=== PATIENT | female | born 1975 | race Caucasian/White ===

== ENCOUNTER 2018-01-28 21:34 | Observation (INO) | payer BC ==
--- NOTE | 2018-01-28 21:57 | PDOC ---
Rapid Medical Evaluation Time Seen by Provider: 01/28/18 21:53 Medical Evaluation: Allergies Allergy/AdvReac Type Severity Reaction Status Date / Time No Known Allergies Allergy Verified 02/18/14 01:12 01/28/18 21:55 I have performed a brief in-person evaluation of this patient. The patient presents with a chief complaint of: midsternal chest pain radiating to her back for 6 hours Pertinent physical exam findings: Lungs CTAB. Pulses equal bilaterally I have ordered the following: labs, ekg, xray The patient will proceed to the ED for further evaluation. Discharge Disposition - Diagnosis Chest pain - Referrals - Patient Instructions - Post Discharge Activity
[2018-01-28] MEDS ORDERED: FAMOTIDINE 20 MG/50 ML IVPB 20 MG/50 ML MG IVPB ONE ×2 (23:29→23:47)
[2018-01-28] MEDS ORDERED: MAG HYDROX/AL HYDROX/SIMETH 30 ML UNIT-DOSE CUP PO ONE (23:29)
[2018-01-28] MEDS ORDERED: ONDANSETRON 4 MG/2 ML VIAL IVPUSH ONE (23:29)
[2018-01-28] MEDS ORDERED: LIDOCAINE VISCOUS 2% ORAL/TOP 20 ML UNIT-DOSE CUP MM ONE (23:29)
[2018-01-28] MEDS ORDERED: SODIUM CHLORIDE 0.9% 1000 ML INFUS.BAG IV ONE (23:29)
--- NOTE | 2018-01-28 23:36 | PDOC ---
History of Present Illness - General History Source: Patient Exam Limitations: No Limitations - History of Present Illness Initial Comments: 01/28/18 23:58 The patient is a 42 year old female with past medical history of acid reflux who presents to the ED with complaints of epigastric pain that began earlier today. She reports severe, stabbing pain that radiates to her back and is associated with nausea and multiple episodes of non-bloody non-bilious vomiting. It is not associated with any chest pain or shortness of breath. She reports having lunch today which consisted of lasagna. She denies any fevers, chills, or any urinary symptoms. GI: Dr. Edgar. F/u a few months ago with endoscopy that showed acid reflux. <Radhika Cooper - Last Filed: 01/29/18 01:28> <Ruthie Phillips - Last Filed: 01/29/18 01:43> - General Chief Complaint: Chest Pain Stated Complaint: PAIN Time Seen by Provider: 01/28/18 21:53 Past History <Radhika oCoper - Last Filed: 01/29/18 01:28> - Immunization History Immunization Up to Date: Yes - Suicide/Smoking/Psychosocial Hx Smoking History: Current every day smoker Number of Cigarettes Smoked Daily: 8 Information on smoking cessation initiated: No 'Breaking Loose' booklet given: 02/18/14 Hx Alcohol Use: No <Ruthie Phillips - Last Filed: 01/29/18 01:43> - Past Medical History Allergies/Adverse Reactions: Allergies Allergy/AdvReac Type Severity Reaction Status Date / Time No Known Allergies Allergy Verified 01/28/18 21:58 Home Medications: Ambulatory Orders Famotidine [Pepcid -] 40 mg PO DAILY 01/29/18 Icosapent Ethyl [Vascepa] 1 gm PO DAILY 01/29/18 Lubiprostone [Amitiza] 8 mcg PO BID 01/29/18 Review of Systems - Review of Systems Able to Perform ROS?: Yes Comments:: 01/28/18 23:58 GENERAL/CONSTITUTIONAL: No fever or chills. No weakness. HEAD, EYES, EARS, NOSE AND THROAT: No change in vision. No ear pain or discharge. No sore throat. CARDIOVASCULAR: No chest pain or shortness of breath. RESPIRATORY: No cough, wheezing, or hemoptysis. GASTROINTESTINAL:(+) epigastric pain, nausea, vomiting, diarrhea No constipation. GENITOURINARY: No dysuria, frequency, or change in urination. MUSCULOSKELETAL: No joint or muscle swelling or pain. No neck or back pain. SKIN: No rash NEUROLOGIC: No headache, vertigo, loss of consciousness, or change in strength/ sensation. ENDOCRINE: No increased thirst. No abnormal weight change. HEMATOLOGIC/LYMPHATIC: No anemia, easy bleeding, or history of blood clots. ALLERGIC/IMMUNOLOGIC: No hives or skin allergy. All Other Systems: Reviewed and Negative <Radhika Cooper - Last Filed: 01/29/18 01:28> *Physical Exam - Vital Signs Last Vital Signs Temp Pulse Resp BP Pulse Ox 98.2 F 93 H 18 155/107 100 01/28/18 22:03 01/28/18 22:03 01/28/18 22:03 01/28/18 22:03 01/28/18 22:03 - Physical Exam Comments: 01/28/18 23:59 GENERAL: Awake, alert, and fully oriented, uncomfortable appearing, dry heaving at bedside. HEAD: No signs of trauma EYES: PERRLA, EOMI, sclera anicteric, conjunctiva clear ENT: Auricles normal inspection, hearing grossly normal, nares patent, oropharynx clear without exudates. Moist mucosa NECK: Normal ROM, supple, no lymphadenopathy, JVD, or masses LUNGS: Breath sounds equal, clear to auscultation bilaterally. No wheezes, and no crackles HEART: Regular rate and rhythm, normal S1 and S2, no murmurs, rubs or gallops ABDOMEN: Soft, nontender, normoactive bowel sounds. No guarding, no rebound. No masses EXTREMITIES: Normal range of motion, no edema. No clubbing or cyanosis. No cords, erythema, or tenderness NEUROLOGICAL: Cranial nerves II through XII grossly intact. Normal speech, normal gait SKIN: Warm, Dry, normal turgor, no rashes or lesions noted. <Radhika Cooper - Last Filed: 01/29/18 01:28> - Vital Signs Last Vital Signs Temp Pulse Resp BP Pulse Ox 98.2 F 93 H 18 155/107 100 01/28/18 22:03 01/28/18 22:03 01/28/18 22:03 01/28/18 22:03 01/28/18 22:03 <Ruthie Phillips - Last Filed: 01/29/18 01:43> Heart Score/ECG Review - ECG Intrepretation Comment:: 01/28/18 23:36 sinus at 70, nl axis, nl interval, t wave inversions v2, no other acute st changes <Ruthie Phillips - Last Filed: 01/29/18 01:43> ED Treatment Course - LABORATORY CBC & Chemistry Diagram: 01/28/18 00:11 01/29/18 00:10 - RADIOLOGY Radiograph Interpretation: 01/29/18 01:20 EXAM: Right upper quadrant abdominal ultrasound HISTORY: Epigastric pain. Bolus vomiting. COMPARISON: None. FINDINGS: The liver is heterogeneous in appearance and measures 17 cm. There are multiple small gallstones. However no gallbladder wall thickening or pericholecystic fluid. instrument technologist reports the Hendrickson's sign to be negative. No right hydronephrosis. The right upper quadrant free fluid. Normal common bile duct measuring 3.7 mm diameter. THIS DOCUMENT HAS BEEN ELECTRONICALLY SIGNED Luis Anguiano MD <Radhika Cooper - Last Filed: 01/29/18 01:28> - LABORATORY CBC & Chemistry Diagram: 01/28/18 00:11 01/29/18 00:10 - RADIOLOGY Radiology Studies Ordered: Category Date Time Status CHEST X-RAY PORTABLE* [RAD] Stat Radiology 01/28/18 23:29 Ordered <Ruthie Phillips - Last Filed: 01/29/18 01:43> Medical Decision Making - Medical Decision Making 01/29/18 01:[address] Polanco, production specialist physician for surgery. Call connected and case was discussed, 01/29/18 01:28 Microblog sent to [facility]. Awaiting call back. <Radhika Cooper - Last Filed: 01/29/18 01:28> - Medical Decision Making 01/28/18 23:46 a/p: 42yo female with acute onset of n/v and epigastric pain -hx of acid reflux and she follows with Dr. Edgar -epigastric pain that radiates to her back -will obtain labs, ekg, trop for atypical acs, lipase, lactic acid -bilious vomiting -will obtain RUQ u/s -will medicate and re-eval 01/29/18 01:42 pt with wbc of 17 gallstones without acute jorge luis on ultrasound concern for symptomatic cholelithiasis case discussed with Dr. Polanco - will see patient in consult, npo, preop labs case discussed with Katie from [facility] who accepts pt to service <Ruthie Phillips - Last Filed: 01/29/18 01:43> *DC/Admit/Observation/Transfer - Attestations Scribe Attestion: 01/29/18 00:02 Documentation prepared by Radhika Cooper, acting as director global medical affairs for Ruthie Phillips DO. <Radhika Cooper - Last Filed: 01/29/18 01:28> - Discharge Dispostion Decision to Admit order: Yes - Attestations Physician Attestion: 01/29/18 01:43 I, Dr. Ruthie Phillips DO, attest that this document has been prepared under my direction and personally reviewed by me in its entirety. I further attest, that it accurately reflects all work, treatment, procedures and medical decision -making performed by me. <Ruthie Phillips - Last Filed: 01/29/18 01:43> Diagnosis at time of Disposition: Chest pain, Symptomatic cholelithiasis - Discharge Dispostion Condition at time of disposition: Fair - Referrals Referrals: Amol Bauman MD [Primary Care Provider] - - Patient Instructions - Post Discharge Activity
[2018-01-28] MEDS ORDERED: MAG HYDROX/AL HYDROX/SIMETH 30 ML UNIT-DOSE CUP ONE (23:47)
[2018-01-28] MEDS ORDERED: LIDOCAINE VISCOUS 2% ORAL/TOP 20 ML UNIT-DOSE CUP ONE (23:47)
[2018-01-28] MEDS ORDERED: ONDANSETRON 4 MG/2 ML VIAL ONE (23:47)
[2018-01-29 00:19] LABS: BASO % 0.4 % (0-2.0); EOS % 0.4 % (0-4.5); HEMATOCRIT 42.3 % (32.4-45.2); HEMOGLOBIN 14.4 GM/dL (10.7-15.3); LYMPH % 9.9 % (8-40); MCH 30.6 pg (25.7-33.7); MCHC 34.1 g/dl (32.0-36.0); MEAN CELL VOLUME 89.9 fl (80-96); MEAN PLT VOLUME 10.7 fl (7.5-11.1); MONO % 3.8 % (3.8-10.2); NEUT % 85.5 % (42.8-82.8); PLATELET COUNT 223 K/MM3 (134-434); RDW 13.3 % (11.6-15.6); WHITE BLOOD COUNT 17.5 K/mm3 (4.0-10.0)
[2018-01-29 00:36] LABS: INR 1.04 (0.82-1.09); PROTHROMBIN TIME (PATIENT) 11.7 SEC (9.7-13.0)
[2018-01-29 01:02] LABS: ALBUMIN 4.2 g/dl (3.4-5.0); ANION GAP 11 (8-16); BILIRUBIN,TOTAL 0.4 mg/dL (0.2-1.0); BLOOD UREA NITROGEN 8 mg/dL (7-18); CALCIUM 9.4 mg/dL (8.5-10.1); CHLORIDE 103 mmol/L (98-107); CO2 26 mmol/L (21-32); CREATININE 0.7 mg/dL (0.55-1.02); GLUCOSE,RANDOM 147 mg/dL (74-106); LIPASE 81 U/L (73-393); SGPT/ALT 32 U/L (12-78); SODIUM 140 mmol/L (136-145); TOT PROT 7.8 g/dl (6.4-8.2)
[2018-01-29 01:05] LABS: ALK PHOS 85 U/L (45-117)
[2018-01-29 01:08] LABS: POTASSIUM 4.4 mmol/L (3.5-5.1); SGOT/AST 22 U/L (15-37)
[2018-01-29] MEDS ORDERED: SODIUM CHLORIDE 0.9% 1000 ML INFUS.BAG IV ONE (01:28)
[2018-01-29] MEDS ORDERED: ONDANSETRON 4 MG/2 ML VIAL IVPUSH PRN (03:53)
--- NOTE | 2018-01-29 03:59 | HP ---
CHIEF COMPLAINT: abdominal pain, N/V PCP: Merna HISTORY OF PRESENT ILLNESS: This is a 42 year old female with a past medical history of GERD and hypertriglyceridemia who presented to the ED with epigastric pain since 330pm and vomiting since 5pm. Upon exam pt is feeling much better; no further pain or nausea/vomiting. ER course was notable for: (1) WBC 17.5 (2) US with cholelithiasis (3) Recent Travel: pt denies PAST MEDICAL HISTORY: GERD, hypertriglyceridemia PAST SURGICAL HISTORY: pt denies Social History: Smokin/2 ppd x 20 years Alcohol: pt denies Drugs: pt denies Family History: mother with DM, thyroid and "heart" father age 57, hep C sister with thyroid and asthma daughter with thyroid Allergies No Known Allergies Allergy (Verified 01/28/18 21:58) HOME MEDICATIONS: 3 Medication Instructions Recorded Famotidine [Pepcid -] 40 mg PO DAILY 01/29/18 Icosapent Ethyl [Vascepa] 1 gm PO DAILY 01/29/18 Lubiprostone [Amitiza] 8 mcg PO BID 01/29/18 REVIEW OF SYSTEMS CONSTITUTIONAL: Absent: fever, chills, diaphoresis, generalized weakness, malaise, loss of appetite, weight change HEENT: Absent: rhinorrhea, nasal congestion, throat pain, throat swelling, difficulty swallowing, mouth swelling, ear pain, eye pain, visual changes CARDIOVASCULAR: Absent: chest pain, syncope, palpitations, irregular heart rate, lightheadedness , peripheral edema RESPIRATORY: Absent: cough, shortness of breath, dyspnea with exertion, orthopnea, wheezing, stridor, hemoptysis GASTROINTESTINAL: Present: abdominal pain, nausea, vomiting Absent: abdominal distension, diarrhea, constipation, melena, hematochezia GENITOURINARY: Absent: dysuria, frequency, urgency, hesitancy, hematuria, flank pain, genital pain MUSCULOSKELETAL: Absent: myalgia, arthralgia, joint swelling, back pain, neck pain SKIN: Absent: rash, itching, pallor HEMATOLOGIC/IMMUNOLOGIC: Absent: easy bleeding, easy bruising, lymphadenopathy, frequent infections ENDOCRINE: Absent: unexplained weight gain, unexplained weight loss, heat intolerance, cold intolerance NEUROLOGIC: Absent: headache, focal weakness or paresthesias, dizziness, unsteady gait, seizure, mental status changes, bladder or bowel incontinence PSYCHIATRIC: Absent: anxiety, depression, suicidal or homicidal ideation, hallucinations. PHYSICAL EXAMINATION Vital Signs - 24 hr 3 01/28/18 01/29/18 22:03 01:48 Temperature 98.2 F 98.0 F Pulse Rate 93 H Pulse Rate [ 78 Left] Respiratory 18 17 Rate Blood Pressure 155/107 Blood Pressure 108/77 [Left Arm] O2 Sat by Pulse 100 100 Oximetry (%) GENERAL: Awake, alert, and fully oriented, in no acute distress. HEAD: Normal with no signs of trauma. EYES: Pupils equal, round and reactive to light, extraocular movements intact, sclera anicteric, conjunctiva clear. No lid lag. EARS, NOSE, THROAT: Ears normal, nares patent, oropharynx clear without exudates. Moist mucous membranes. NECK: Normal range of motion, supple without lymphadenopathy, JVD, or masses. LUNGS: Breath sounds equal, clear to auscultation bilaterally. No wheezes, and no crackles. No accessory muscle use. HEART: Regular rate and rhythm, normal S1 and S2 without murmur, rub or gallop. ABDOMEN: Soft, nontender, not distended, normoactive bowel sounds, no guarding, no rebound, no masses. No hepatomegaly or splenomegaly. MUSCULOSKELETAL: Normal range of motion at all joints. No bony deformities or tenderness. No CVA tenderness. UPPER EXTREMITIES: 2+ pulses, warm, well-perfused. No cyanosis. No clubbing. No peripheral edema. LOWER EXTREMITIES: 2+ pulses, warm, well-perfused. No calf tenderness. No peripheral edema. NEUROLOGICAL: Cranial nerves II-XII intact. Normal speech. Normal gait. PSYCHIATRIC: Cooperative. Good eye contact. Appropriate mood and affect. SKIN: Warm, dry, normal turgor, no rashes or lesions noted, normal capillary refill. Laboratory Results - last 24 hr 3 01/28/18 01/28/18 01/28/18 00:00 00:11 00:11 WBC 17.5 H RBC 4.70 Hgb 14.4 Hct 42.3 MCV 89.9 MCH 30.6 MCHC 34.1 RDW 13.3 Plt Count 223 MPV 10.7 Neutrophils % 85.5 H Lymphocytes % 9.9 Monocytes % 3.8 Eosinophils % 0.4 Basophils % 0.4 PT with INR 11.70 INR 1.04 Sodium Potassium Chloride Carbon Dioxide Anion Gap BUN Creatinine Creat Clearance w eGFR Random Glucose Lactic Acid 1.2 Calcium Magnesium Total Bilirubin AST ALT Alkaline Phosphatase Creatine Kinase Creatine Kinase Index CK-MB (CK-2) Troponin I Total Protein Albumin Lipase 3 01/29/18 01/29/18 00:10 00:11 WBC RBC Hgb Hct MCV MCH MCHC RDW Plt Count MPV Neutrophils % Lymphocytes % Monocytes % Eosinophils % Basophils % PT with INR INR Sodium 140 Potassium 4.4 Chloride 103 Carbon Dioxide 26 Anion Gap 11 BUN 8 Creatinine 0.7 Creat Clearance w eGFR > 60 Random Glucose 147 H Lactic Acid Calcium 9.4 Magnesium 2.0 Total Bilirubin 0.4 AST 22 ALT 32 Alkaline Phosphatase 85 Creatine Kinase 370 H Creatine Kinase Index 0.9 CK-MB (CK-2) 3.374 Troponin I < 0.02 Total Protein 7.8 Albumin 4.2 Lipase 81 Cancelled ECG Normal sinus rhythm Radiology Reports RUQ abdominal ultrasound THIS IS A PRELIMINARY REPORT FROM IMAGING PATIENT CASE MANAGER FINDINGS: The liver is heterogeneous in appearance and measures 17 cm. There are multiple small gallstones. However no gallbladder wall thickening or pericholecystic fluid. applied technologist reports the Hendrickson's sign to be negative. No right hydronephrosis. The right upper quadrant free fluid. Normal common bile duct measuring 3.7 mm diameter. THIS DOCUMENT HAS BEEN ELECTRONICALLY SIGNED Luis Anguiano MD 01/29/2018 01:07 EST ASSESSMENT/PLAN: 42yF with PMH GERD and hypertriglyceridemia presented to the ED with epigastric pain, N/V. Cholelithiasis - NPO - surgical consult - NS @ 75cc/hr - no sign of obstruction or infection on labs, hold on antibiotics for now leukocytosis - likely reactive due to vomiting - observe off antibiotics GERD - cont home med hypertriglyceridemia - hold meds while in hospital DVT PPX - heparin deferred, expected LOS less than 48h FEN - NS @75cc/hr - bmp in am - npo Dispo: pt requires further observation for management of her emergent medical condition. Visit type - Emergency Visit Emergency Visit: Yes ED Registration Date: 01/28/18 Care time: The patient presented to the Emergency Department on the above date and was hospitalized for further evaluation of their emergent condition. - New Patient This patient is new to me today: Yes Date on this admission: 01/29/18 - Critical Care Critical Care patient: No Hospitalist Screening - Colonoscopy Questionnaire Colonoscopy Questionnaire: Colonoscopy Questionnaire - Patient: 50 - 75 years old and never had a screening colonoscopy: No History of colon or rectal polyps, or CA: No History of IBD, Crohn's disease or UC: No History of abdominal radiation therapy as a child: No - Relative: 1 with colon or rectal CA, or polyps at age 60 or younger: No Colon or rectal CA diagnosed at age 45 or younger: No Multiple relatives with colon or rectal CA: No - Outcome: Screening Result: Negative Screen
[2018-01-29] MEDS: SODIUM CHLORIDE 1,000 ML IV SCH ×2 (04:30→17:46)
[2018-01-29 05:12] VITALS: BMI 25.2
[2018-01-29 05:18] LABS: HCG,QUALITATIVE URINE NEGATIVE
[2018-01-29 05:20] LABS: URINE APPEARANCE CLEAR; URINE BILIRUBIN NEGATIVE (<2.0 mg/dL); URINE COLOR STRAW; URINE GLUCOSE (UA) NEGATIVE (NEGATIVE); URINE KETONE NEGATIVE (NEGATIVE); URINE LEUK ESTERASE NEGATIVE (NEGATIVE); URINE NITRITE NEGATIVE (NEGATIVE); URINE PROTEIN NEGATIVE (NEGATIVE); URINE UROBILINOGEN NEGATIVE mg/dL (0.2-1.0)
[2018-01-29 08:00] LABS: BASO % 0.6 % (0-2.0); EOS % 0.5 % (0-4.5); HEMATOCRIT 38.5 % (32.4-45.2); HEMOGLOBIN 12.9 GM/dL (10.7-15.3); LYMPH % 22.2 % (8-40); MCH 30.4 pg (25.7-33.7); MCHC 33.5 g/dl (32.0-36.0); MEAN CELL VOLUME 90.8 fl (80-96); NEUT % 70.7 % (42.8-82.8); PLATELET COUNT 179 K/MM3 (134-434); RBC 4.24 M/mm3 (3.60-5.2); RDW 13.4 % (11.6-15.6); WHITE BLOOD COUNT 13.3 K/mm3 (4.0-10.0)
[2018-01-29 08:48] LABS: CHLORIDE 110 mmol/L (98-107); POTASSIUM 4.3 mmol/L (3.5-5.1); SODIUM 142 mmol/L (136-145)
--- NOTE | 2018-01-29 08:50 | PN ---
Progress Note, Physician - Current Medication List Current Medications: Active Medications Sodium Chloride (Normal Saline -) 1,000 mls @ 75 mls/hr IV ASDIR ZEYAD Last Admin: 01/29/18 04:30 Dose: 75 mls/hr Non-Formulary Medication (Lubiprostone [Amitiza]) 8 mcg PO BID ZEYAD Ondansetron HCl (Zofran Injection) 4 mg IVPUSH Q6H PRN PRN Reason: NAUSEA Ranitidine HCl (Zantac -) 300 mg PO DAILY ZEYAD - Objective Vital Signs: Vital Signs Temperature 97.7 F 01/29/18 05:27 Pulse Rate 63 01/29/18 05:05 Respiratory Rate 18 01/29/18 05:17 Blood Pressure 100/60 01/29/18 05:05 O2 Sat by Pulse Oximetry (%) 98 01/29/18 05:17 Labs: CBC, BMP 01/29/18 06:00 INR, PTT INR 1.04 (0.82-1.09) 01/28/18 00:00 Problem List - Problems (1) Leukocytosis Assessment/Plan: - likely reactive due to vomiting - observe off antibiotics Code(s): D72.829 - ELEVATED WHITE BLOOD CELL COUNT, UNSPECIFIED (2) Symptomatic cholelithiasis Assessment/Plan: - NPO - surgical consult and id consult - NS @ 75cc/hr - no sign of obstruction or infection on labs, hold on antibiotics for now Code(s): K80.20 - CALCULUS OF GALLBLADDER W/O CHOLECYSTITIS W/O OBSTRUCTION
[2018-01-29 09:05] LABS: ALBUMIN 3.2 g/dl (3.4-5.0); ALK PHOS 68 U/L (45-117); ANION GAP 4 (8-16); BILIRUBIN,TOTAL 0.5 mg/dL (0.2-1.0); BLOOD UREA NITROGEN 5 mg/dL (7-18); CALCIUM 7.6 mg/dL (8.5-10.1); CO2 28 mmol/L (21-32); CREATININE 0.5 mg/dL (0.55-1.02); GLUCOSE,RANDOM 99 mg/dL (74-106); PHOSPHOROUS 2.9 mg/dL (2.5-4.9); SGOT/AST 16 U/L (15-37); SGPT/ALT 26 U/L (12-78); TOT PROT 6.1 g/dl (6.4-8.2)
[2018-01-29] MEDS ORDERED: PATIENT'S OWN MEDICATION (NON-FORMULARY) (Lubiprostone [Amitiza] 8 MCG) PO SCH (10:00)
[2018-01-29] MEDS ORDERED: RANITIDINE HCL 150 MG TABLET (FP) PO SCH (10:00)
--- NOTE | 2018-01-29 10:06 | CONSULT ---
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 PMHx: GERD HLD PSHx: none Home Medications Medication Instructions Recorded Famotidine [Pepcid -] 40 mg PO DAILY 01/29/18 Icosapent Ethyl [Vascepa] 1 gm PO DAILY 01/29/18 Lubiprostone [Amitiza] 8 mcg PO BID 01/29/18 Allergies Allergy/AdvReac Type Severity Reaction Status Date / Time No Known Allergies Allergy Verified 01/28/18 21:58 PHYSICAL EXAM: GENERAL: Awake, alert, and fully oriented, in no acute distress. HEAD: Normal with no signs of trauma. EYES: sclera anicteric, conjunctiva clear. NECK: Normal ROM, supple without lymphadenopathy, JVD, or masses. ABDOMEN: Soft, nontender, not distended, normoactive bowel sounds, no guarding, no rebound, no masses. No organomegaly. No hernias MUSCULOSKELETAL: Normal ROM at all joints. No bony deformities or tenderness. No CVA tenderness. UPPER EXTREMITIES: 2+ pulses, warm, well-perfused. No cyanosis. Cap refill <2 seconds. No peripheral edema. LOWER EXTREMITIES: 2+ pulses, warm, well-perfused. No calf tenderness. No peripheral edema. NEUROLOGICAL: Normal speech, gait not observed. PSYCH: Cooperative. Good eye contact. Appropriate mood and affect. SKIN: Warm, dry, normal turgor, no rashes or lesions noted. Vital Signs Temperature 97.7 F 01/29/18 05:27 Pulse Rate 63 01/29/18 05:05 Respiratory Rate 18 01/29/18 05:17 Blood Pressure 100/60 01/29/18 05:05 O2 Sat by Pulse Oximetry (%) 98 01/29/18 05:17 Lab Results WBC 13.3 K/mm3 (4.0-10.0) H 01/29/18 06:00 RBC 4.24 M/mm3 (3.60-5.2) 01/29/18 06:00 Hgb 12.9 GM/dL (10.7-15.3) D 01/29/18 06:00 Hct 38.5 % (32.4-45.2) 01/29/18 06:00 MCV 90.8 fl (80-96) 01/29/18 06:00 MCHC 33.5 g/dl (32.0-36.0) 01/29/18 06:00 RDW 13.4 % (11.6-15.6) 01/29/18 06:00 Plt Count 179 K/MM3 (134-434) 01/29/18 06:00 Sodium 142 mmol/L (136-145) 01/29/18 06:00 Potassium 4.3 mmol/L (3.5-5.1) 01/29/18 06:00 Chloride 110 mmol/L (98-107) H 01/29/18 06:00 Carbon Dioxide 28 mmol/L (21-32) 01/29/18 06:00 Anion Gap 4 (8-16) L 01/29/18 06:00 BUN 5 mg/dL (7-18) L 01/29/18 06:00 Creatinine 0.5 mg/dL (0.55-1.02) L 01/29/18 06:00 Random Glucose 99 mg/dL (74-106) 01/29/18 06:00 Calcium 7.6 mg/dL (8.5-10.1) L 01/29/18 06:00 INR 1.04 (0.82-1.09) 01/28/18 00:00 CT 09/07 reviewed; current admission studies reviewed IMP: ? exacerbation of GERD vs. biliary colic PLAN: seems exacerbation of GERD more likely; no evidence of acute cholecystitis ; would have GI eveal/f/u and possible trila of clear liquids and consideration of elective lap jorge luis; d/w in depth w/the patient who showed an understanding of the plan. Carlitos Polanco MD FACS
[2018-01-29 11:21] LABS: CHOLESTEROL 114 mg/dL (50-200)
[2018-01-29 11:24] LABS: HDL CHOLESTEROL 33 mg/dL (40-60); TRIGLYCERIDES 173 mg/dL (35-160)
--- NOTE | 2018-01-29 11:44 | EKG ---
Test Reason : Blood Pressure : / mmHG Vent. Rate : 070 BPM Atrial Rate : 070 BPM P-R Int : 186 ms QRS Dur : 076 ms QT Int : 420 ms P-R-T Axes : 062 064 058 degrees QTc Int : 453 ms NORMAL SINUS RHYTHM NORMAL ECG WHEN COMPARED WITH ECG OF 14-MAR-2008 05:44, NO SIGNIFICANT CHANGE WAS FOUND Confirmed by DAVID TEMPLETON MD ([id number]) on 01/29/2018 11:44:04 AM Referred By: Confirmed By:DAVID TEMPLETON MD
--- NOTE | 2018-01-29 15:43 | CON.GI ---
Consult Consult Specialty:: GI Reason for Consultation:: epigastric pain - History of Present Illness History of Present Illness: Chart reviewed. Events noted. Surgical evaluation noted. A 42-year-old female with known GERD diagnosed by an EGD in September of this year status post 8 weeks of PPI with excellent response presents with epigastric pain, nausea and vomiting 1 day. has been having mild dyspepsia since December after PPI were stopped. Reports no overt GERD-like symptoms. A Workup on admission revealed a cholelithiasis without signs of cholecystitis. Mild leukocytosis, otherwise normal CBC, CMP, and lipase. BhCG negative. Aatient's symptoms have completely resolved at this time. She reports no dysphagia, odynophagia, hematemesis, melena, hematochezia, jaundice, low grade fevers, chills, or significant weight loss. denies chronic NSAID use. Denies chronic alcohol. - History Source History Provided By: Patient, Transfer Record - Past Medical History ...: No - Alcohol/Substance Use Hx Alcohol Use: No - Smoking History Smoking history: Current every day smoker Have you smoked in the past 12 months: Yes Aproximately how many cigarettes per day: 8 Home Medications - Allergies Allergies/Adverse Reactions: Allergies Allergy/AdvReac Type Severity Reaction Status Date / Time No Known Allergies Allergy Verified 01/28/18 21:58 - Home Medications Home Medications: Ambulatory Orders Famotidine [Pepcid -] 40 mg PO DAILY 01/29/18 Icosapent Ethyl [Vascepa] 1 gm PO DAILY 01/29/18 Lubiprostone [Amitiza] 8 mcg PO BID 01/29/18 Family Disease History - Family Disease History Family History: Unremarkable Review of Systems Findings/Remarks: As per H&P and HPI Physical Exam-GI Vital Signs: Vital Signs Temperature 97.8 F 01/29/18 14:10 Pulse Rate 74 01/29/18 14:10 Respiratory Rate 20 01/29/18 14:10 Blood Pressure 117/73 01/29/18 14:10 O2 Sat by Pulse Oximetry (%) 98 01/29/18 10:00 Constitutional: Yes: Well Nourished, No Distress, Calm Eyes: Yes: Conjunctiva Clear HENT: Yes: Atraumatic Neck: Yes: Supple Cardiovascular: Yes: Regular Rate and Rhythm Respiratory: Yes: Regular Gastrointestinal Inspection: No: Ascites, Distention ...Auscultate: Yes: Normoactive Bowel Sounds ...Palpate: Yes: Soft. No: Firm/Rigid, Guarding, Tenderness, Epigastium, Tenderness, Rebound Neurological: Yes: Alert, Oriented Labs: CBC, BMP 01/29/18 06:00 01/29/18 06:00 INR, PTT INR 1.04 (0.82-1.09) 01/28/18 00:00 Laboratory Last Values WBC 13.3 K/mm3 (4.0-10.0) H 01/29/18 06:00 RBC 4.24 M/mm3 (3.60-5.2) 01/29/18 06:00 Hgb 12.9 GM/dL (10.7-15.3) D 01/29/18 06:00 Hct 38.5 % (32.4-45.2) 01/29/18 06:00 MCV 90.8 fl (80-96) 01/29/18 06:00 MCH 30.4 pg (25.7-33.7) 01/29/18 06:00 MCHC 33.5 g/dl (32.0-36.0) 01/29/18 06:00 RDW 13.4 % (11.6-15.6) 01/29/18 06:00 Plt Count 179 K/MM3 (134-434) 01/29/18 06:00 MPV 10.0 fl (7.5-11.1) 01/29/18 06:00 Neutrophils % 70.7 % (42.8-82.8) 01/29/18 06:00 Lymphocytes % 22.2 % (8-40) D 01/29/18 06:00 Monocytes % 6.0 % (3.8-10.2) 01/29/18 06:00 Eosinophils % 0.5 % (0-4.5) 01/29/18 06:00 Basophils % 0.6 % (0-2.0) 01/29/18 06:00 PT with INR 11.70 SEC (9.7-13.0) 01/28/18 00:00 INR 1.04 (0.82-1.09) 01/28/18 00:00 Sodium 142 mmol/L (136-145) 05/10/18 06:00 Potassium 4.3 mmol/L (3.5-5.1) 01/29/18 06:00 Chloride 110 mmol/L (98-107) H 01/29/18 06:00 Carbon Dioxide 28 mmol/L (21-32) 01/29/18 06:00 Anion Gap 4 (8-16) L 01/29/18 06:00 BUN 5 mg/dL (7-18) L 01/29/18 06:00 Creatinine 0.5 mg/dL (0.55-1.02) L 01/29/18 06:00 Creat Clearance w eGFR > 60 (>60) 01/29/18 06:00 Random Glucose 99 mg/dL (74-106) 01/29/18 06:00 Lactic Acid 1.2 mmol/L (0.0-2.0) 01/28/18 00:11 Calcium 7.6 mg/dL (8.5-10.1) L 01/29/18 06:00 Phosphorus 2.9 mg/dL (2.5-4.9) 01/29/18 06:00 Magnesium 2.0 mg/dL (1.8-2.4) 01/29/18 06:00 Total Bilirubin 0.5 mg/dL (0.2-1.0) D 01/29/18 06:00 AST 16 U/L (15-37) 01/29/18 06:00 ALT 26 U/L (12-78) 01/29/18 06:00 Alkaline Phosphatase 68 U/L (45-117) 01/29/18 06:00 Creatine Kinase 259 IU/L (26-192) H 01/29/18 06:00 Creatine Kinase Index 1.0 % (0.0-5.0) 01/29/18 06:00 CK-MB (CK-2) 2.671 ng/mL (0.5-3.6) 01/29/18 06:00 Troponin I < 0.02 ng/ml (0.00-0.05) 01/29/18 06:00 Total Protein 6.1 g/dl (6.4-8.2) L 01/29/18 06:00 Albumin 3.2 g/dl (3.4-5.0) L 01/29/18 06:00 Triglycerides 173 mg/dL (35-160) H 01/29/18 06:00 Cholesterol 114 mg/dL (50-200) 01/29/18 06:00 Total LDL Cholesterol 64 mg/dL (5-100) 01/29/18 06:00 HDL Cholesterol 33 mg/dL (40-60) L 01/29/18 06:00 Lipase Cancelled 01/29/18 00:11 Urine Color Straw 01/29/18 04:25 Urine Appearance Clear 01/29/18 04:25 Urine pH 7.0 (5.0-8.0) 01/29/18 04:25 Ur Specific [place] 1.010 (1.001-1.035) 01/29/18 04:25 Urine Protein Negative (NEGATIVE) 01/29/18 04:25 Urine Glucose (UA) Negative (NEGATIVE) 01/29/18 04:25 Urine Ketones Negative (NEGATIVE) 01/29/18 04:25 Urine Blood Negative (NEGATIVE) 01/29/18 04:25 Urine Nitrite Negative (NEGATIVE) 01/29/18 04:25 Urine Bilirubin Negative (<2.0 mg/dL) 01/29/18 04:25 Urine Urobilinogen Negative mg/dL (0.2-1.0) 01/29/18 04:25 Ur Leukocyte Esterase Negative (NEGATIVE) 01/29/18 04:25 Urine HCG, Qual Negative 01/29/18 04:25 Imaging - Results Ultrasound: Report Reviewed Problem List - Problems (1) Symptomatic cholelithiasis Code(s): K80.20 - CALCULUS OF GALLBLADDER W/O CHOLECYSTITIS W/O OBSTRUCTION Assessment/Plan A 42-year-old female with acute onset nausea, vomiting and epigastric pain and history of reflux esophagitis. No diarrheal symptoms, fever, skin rashes. Suspect combination of cholelithiasis and reflux esophagitis causing her symptoms. no signs of biliary obstruction, or significant inflammation. Pepprescribe Protonix 40 mg daily 30 minutes before breakfast for 4 weeks. Follow-up with surgery on outpatient basis for possible elective cholecystectomy. Advance diet to low fat regular. Observe
--- NOTE | 2018-01-29 18:02 | PN ---
Progress Note (short form) - Note Progress Note: ID Consult dictated Abdominal pain syndrome- improved Leukocytosis likely leukemoid rxn improving Observe off antibiotics Repeat CBC am
--- NOTE | 2018-01-29 19:05 | CONS ---
DATE OF CONSULTATION: DATE OF DICTATION: 01/29/2018 INFECTIOUS DISEASE CONSULTATION HISTORY OF PRESENT ILLNESS: A 42-year-old female with a history of gastroesophageal reflux, evaluated for leukocytosis. The patient was admitted to the hospital on January 28, 2018, with abdominal pain syndrome. Patient states she ate lasagna for lunch yesterday; approximately 3 hours later, she developed severe epigastric pain associated with nausea and vomiting of gastric contents. The vomiting continued to the point where she presented to the emergency room. In the emergency room, she was noted to have an elevated white blood cell count of 17,000. An ultrasound was performed that showed cholelithiasis, without evidence of cholecystitis or dilated ducts. She denies any associated fever or chills, no reports of vomiting elmer red blood or hematemesis. She has had normal bowel movements, denies diarrhea. The patient has had similar episode in the past, was diagnosed with gastroesophageal reflux and prescribed a PPI. An EGD was performed in August which she reports was consistent with reflux. PAST MEDICAL HISTORY: Positive for gastroesophageal reflux, hypertriglyceridemia. ALLERGIES: No known allergies. LABORATORY DATA: White count 17.5 on admission, presently 13.3, hematocrit 38.5, platelet count 179, BUN 5, creatinine 0.5. Liver enzymes normal. Lipase 81. Urinalysis: leukocyte esterase negative. PHYSICAL EXAMINATION: General: She is awake and alert. She is pain free at the present time. Vital signs: Temperature 97.9, blood pressure 101/67, pulse 73 regular, respirations 18 per minute. HEENT: Sclerae anicteric. Cardiovascular: Heart sounds S1, S2. Respiratory: Lungs clear. Abdomen: Soft. No epigastric tenderness to palpation. No mass, rebound, or rigidity. No right upper quadrant tenderness to palpation. Extremities: Negative for edema. IMPRESSION: 1. Abdominal pain syndrome, improved. 2. Leukocytosis, likely leukemoid reaction secondary to stress. Would observe off antibiotic therapy. Repeat CBC in the a.m. GI and surgical outpatient followup. Thank you for the kind referral. BRANDAN CORTES M.D. DERICK/[id number]
[2018-01-30] MEDS: SODIUM CHLORIDE 1,000 ML IV SCH (06:14)
--- NOTE | 2018-01-30 08:37 | PN ---
Progress Note (short form) - Note Progress Note: 42yo F h/o epigastric pain and n/v, surgery was initially consulted to evaluate gallstones, but pt had no signs of acute cholecystitis. Now pt states that pain is completely resolved. Pt tolerating regular diet. Denies fevers, chills. Last Vital Signs Temp Pulse Resp BP Pulse Ox 97.6 F 76 18 105/62 97 01/30/18 05:00 01/30/18 05:00 01/30/18 05:00 01/30/18 05:00 01/30/18 02:00 CBC, BMP 01/29/18 06:00 01/29/18 06:00 PE: General: comfortably, A&O x 3 Abd: soft, nontender, nondistended Ext: no edema Problem List - Problems (1) GERD (gastroesophageal reflux disease) Assessment/Plan: 42yo F with epigastric pain completely resolved most likely GERD -WBC downtrending from 17--->13 -Pt should follow up with GI and continue GERD regiment. -No surgical intervention at this time. Pt should follow up with Dr. Polanco office for gallstones if issues continue. Call [phone] for appt. Plan discussed with Dr. Polanco who agrees with plan. Code(s): K21.9 - GASTRO-ESOPHAGEAL REFLUX DISEASE WITHOUT ESOPHAGITIS
[2018-01-30] MEDS ORDERED: PANTOPRAZOLE 40 MG TABLET (FP) PO SCH (10:00)
--- NOTE | 2018-01-30 10:02 | PN ---
Progress Note, Physician History of Present Illness: Asymptomatic. Tolerating diet - Current Medication List Current Medications: Active Medications Sodium Chloride (Normal Saline -) 1,000 mls @ 75 mls/hr IV ASDIR ZEYAD Last Admin: 01/30/18 06:14 Dose: 75 mls/hr Ondansetron HCl (Zofran Injection) 4 mg IVPUSH Q6H PRN PRN Reason: NAUSEA Pantoprazole Sodium (Protonix -) 40 mg PO DAILY ZEYAD - Objective Vital Signs: Vital Signs Temperature 97.6 F 01/30/18 05:00 Pulse Rate 76 01/30/18 05:00 Respiratory Rate 18 01/30/18 05:00 Blood Pressure 105/62 01/30/18 05:00 O2 Sat by Pulse Oximetry (%) 97 01/30/18 02:00 Constitutional: Yes: No Distress, Calm Labs: CBC, BMP 01/29/18 06:00 01/29/18 06:00 INR, PTT INR 1.04 (0.82-1.09) 01/28/18 00:00 Problem List - Problems (1) Symptomatic cholelithiasis Code(s): K80.20 - CALCULUS OF GALLBLADDER W/O CHOLECYSTITIS W/O OBSTRUCTION Assessment/Plan OK to D/C from GI perspective. Followup with PCP within 1 week
--- NOTE | 2018-01-30 11:09 | DS ---
Physical Examination Vital Signs: Vital Signs Temperature 97.6 F 01/30/18 05:00 Pulse Rate 76 01/30/18 05:00 Respiratory Rate 18 01/30/18 05:00 Blood Pressure 105/62 01/30/18 05:00 O2 Sat by Pulse Oximetry (%) 97 01/30/18 02:00 Constitutional: Yes: Well Nourished, No Distress, Calm Cardiovascular: Yes: Regular Rate and Rhythm Respiratory: Yes: Regular Gastrointestinal: Yes: Normal Bowel Sounds, Soft Neurological: Yes: Alert, Oriented Psychiatric: Yes: Alert, Oriented Labs: CBC, BMP 01/29/18 06:00 01/29/18 06:00 Discharge Summary Reason For Visit: SYMPTOMATIC CHOLELITHIASIS CHEST PAIN Current Active Problems Chest pain (Acute) GERD (gastroesophageal reflux disease) (Acute) Leukocytosis (Acute) Symptomatic cholelithiasis (Acute) Hospital Course: The patient is a 42 year old female with past medical history of acid reflux who presents to the ED with complaints of epigastric pain that began earlier today. She reports severe, stabbing pain that radiates to her back and is associated with nausea and multiple episodes of non-bloody non-bilious vomiting. It is not associated with any chest pain or shortness of breath. She reports having lunch today which consisted of lasagna. She denies any fevers, chills, or any urinary symptoms. Condition: Stable - Instructions Diet, Activity, Other Instructions: -Please f/u with Dr Packer by calling for an appt at [phone] -Also f/u with your PCP Referrals: Carlitos Polanco MD [Staff Physician] - Amol Bauman MD [Primary Care Provider] - Disposition: HOME - Home Medications Comprehensive Discharge Medication List: Ambulatory Orders Famotidine [Pepcid -] 40 mg PO DAILY 01/29/18 Icosapent Ethyl [Vascepa] 1 gm PO DAILY 01/29/18 Lubiprostone [Amitiza] 8 mcg PO BID 01/29/18
[2018-01-30 11:25] VITALS: BP 141/72; PULSE 85; TEMP 98.3
== END 2018-01-30 11:27 | disposition home or self-care (01) ==
LOC: JER 21:34 → JERBED 01-29 01:38 → UNDOADMOB 01-29 02:02 → JERBED 01-29 02:02 → J7W 01-29 03:53
PROVIDERS: ADMIT Internal Medicine; ATTEND Family Medicine
PROC: 3E033GC Introduction of Other Therapeutic Substance into Peripheral Vein, Percutaneous Approach (ICD-10-PCS; principal; 2018-01-29)
PROC: 3E0337Z Introduction of Electrolytic and Water Balance Substance into Peripheral Vein, Percutaneous Approach (ICD-10-PCS; 2018-01-29)
DX: K80.20 Calculus of gallbladder without cholecystitis without obstruction (principal); K21.9 Gastro-esophageal reflux disease without esophagitis; R07.9 Chest pain, unspecified; D72.829 Elevated white blood cell count, unspecified; E78.1 Pure hyperglyceridemia; F17.210 Nicotine dependence, cigarettes, uncomplicated
CPT/HCPCS: 36415; 71045-TC-FY; 76705-TC; 80053; 80061; 81003; 82550; 82553; 83605; 83690; 83721; 83735; 84100; 84484; 84703; 85025; 85610; 93005; 93010; 99283-25; G0378; J7030

== ENCOUNTER 2018-01-30 21:54 | Inpatient (IN) | payer BC ==
--- NOTE | 2018-01-30 22:04 | PDOC ---
Rapid Medical Evaluation Time Seen by Provider: 01/30/18 22:01 Medical Evaluation: Allergies Allergy/AdvReac Type Severity Reaction Status Date / Time No Known Allergies Allergy Verified 01/28/18 21:58 01/30/18 22:01 I have performed a brief in person evaluation of this patient. The patient present presents with a chief complaint of:Epigastric pain since ~ 1800hrs. D/C from [facility] 7th floor today (admitted for x3d due to similiar symptoms) Dx with Acid reflux Pt took Reglan and pepcid today Pertinent physical exam findings: EKG by me in triage. NSR 70BPM/ No St elevation/ No ectopy Pain to epigastric pain on palp I have ordered the following:CBC/diff/cmp/ cardiac profile/ ekg The patient will proceed to the ED for further evaluation.
[2018-01-30 22:14] LABS: BASO % 0.3 % (0-2.0); MCH 30.3 pg (25.7-33.7); MONO % 6.5 % (3.8-10.2); NEUT % 80.2 % (42.8-82.8); PLATELET COUNT 210 K/MM3 (134-434); RDW 13.2 % (11.6-15.6); WHITE BLOOD COUNT 17.1 K/mm3 (4.0-10.0)
[2018-01-30 22:42] LABS: ANION GAP 7 (8-16); BILIRUBIN,TOTAL 0.4 mg/dL (0.2-1.0); BLOOD UREA NITROGEN 7 mg/dL (7-18); CALCIUM 8.5 mg/dL (8.5-10.1); CHLORIDE 105 mmol/L (98-107); CO2 27 mmol/L (21-32); CREATININE 0.7 mg/dL (0.55-1.02); GLUCOSE,RANDOM 130 mg/dL (74-106); POTASSIUM 3.8 mmol/L (3.5-5.1); SGOT/AST 18 U/L (15-37); SGPT/ALT 31 U/L (12-78); SODIUM 139 mmol/L (136-145); TOT PROT 7.5 g/dl (6.4-8.2)
[2018-01-30 22:45] LABS: ALK PHOS 81 U/L (45-117)
--- NOTE | 2018-01-31 00:59 | PDOC ---
Attending Attestation - Resident Resident Name: Noel Allen - ED Attending Attestation I have performed the following: I have examined & evaluated the patient, The case was reviewed & discussed with the resident, I agree w/resident's findings & plan - HPI HPI: 01/31/18 02:46 Pt comes in with worsening RUQ pain and balbuena's sign with multiple gallstones. - Physicial Exam PE: 01/31/18 03:29 Agree with resident exam. - Medical Decision Making 01/31/18 01:11 Pt will have repeat SONO to r/o cholecystitis, as she has a balbuena's sign + in the ER today. 01/31/18 03:29 Patient Name: KOLE MCDANIELS THIS IS A PRELIMINARY REPORT FROM [facility] NURSE DATE OF SERVICE: 2018-01-31 01:40:49 IMAGES: 42 EXAM: The US RUQ GALLBLADDER US HISTORY: Right upper quadrant pain COMPARISON: January 29, 2018 FINDINGS: Liver is echogenic. Pancreas appears normal. Right kidney appears normal. Common bile duct is 4 mm. There is cholelithiasis. Although the wall is thickened measuring 4 mm. IMPRESSION: Cholelithiasis with new gallbladder wall thickening concerning for gallbladder inflammation THIS DOCUMENT HAS BEEN ELECTRONICALLY SIGNED 01/31/18 03:31 Pt will be admitted to the hospitalist for cholecystitis <Elinor Longo - Last Filed: 01/31/18 03:49> Heart Score/ECG Review - ECG Intrepretation Comment:: 01/31/18 01:12 Completed @22:02:54 Normal Sinus rhythm Normal ECG Vent. rate 70 bpm AK interval 164 ms QRS duration 84 ms <Regis Webber - Last Filed: 01/31/18 01:14> - Electrocardiogram EKG: Normal - Age Age: </= 45 - Risk Factors Based on the list above the patient has:: No risk factors known - ECG Intrepretation Rhythm: Regular Rhythm - [place]: Normal - P and AK Prominent R with upright T in V1 (true posterior PA): No Delta Wave(s) Present: No WPW: No - QRS Poor R Wave Progression: No Q Wave Present: No - ST and T Early Repolarization: No Non Specific ST-T Wave changes: No Flattened T Waves: No Prolonged Q-T Interval: No - ECG Impressions Normal ECG: Yes Non-specific ST Elevation: No Ischemic Changes: No <Elinor Longo - Last Filed: 01/31/18 03:49>
[2018-01-31] MEDS ORDERED: SODIUM CHLORIDE 1,000 ML IV STA (01:06)
[2018-01-31] MEDS ORDERED: FAMOTIDINE IV 20 MG/12 ML VIAL IVPB ONE (01:07)
[2018-01-31] MEDS ORDERED: MAG HYDROX/AL HYDROX/SIMETH 30 ML UNIT-DOSE CUP PO ONE (01:07)
[2018-01-31] MEDS ORDERED: morphine CARPU-JECT 4 MG/1 ML DISP.SYRIN IVPUSH ONE (01:07)
[2018-01-31] MEDS ORDERED: MAG HYDROX/AL HYDROX/SIMETH 30 ML UNIT-DOSE CUP ONE (01:39)
[2018-01-31] MEDS ORDERED: morphine SULFATE 4 MG/ML VIAL ONE (01:39)
[2018-01-31] MEDS ORDERED: FAMOTIDINE 20 MG/50 ML IVPB 20 MG/50 ML MG IVPB ONE (01:40)
--- NOTE | 2018-01-31 03:46 | PDOC ---
History of Present Illness <Elinor Longo - Last Filed: 01/31/18 03:53> - General History Source: Patient Exam Limitations: No Limitations - History of Present Illness Initial Comments: 01/31/18 03:41 Patient is a 42F with no significant medical history here today complaining of epigastric abdominal pain. Patient was evaluated for cholecystitis vs GERD and discharged on 01/30 with a diagnosis of cholelithiasis and GERD. Patient is presenting to the ED again today due to sudden onset of epigastric abdominal pain. Patient describes the pain as a pressure. Denies pain with urination. Last bowel movement this morning. Denies fevers, chills. Endorses vomiting and nausea. <Noel Allen - Last Filed: 01/31/18 03:55> - General Chief Complaint: Chest Pain Stated Complaint: CHEST PAIN Time Seen by Provider: 01/30/18 22:01 Past History <Elinor Longo - Last Filed: 01/31/18 03:53> - Past Medical History COPD: No - Immunization History Immunization Up to Date: Yes - Suicide/Smoking/Psychosocial Hx Smoking History: Never smoked Have you smoked in the past 12 months: No Number of Cigarettes Smoked Daily: 8 Cigars Per Day: 0 Information on smoking cessation initiated: No 'Breaking Loose' booklet given: 01/29/18 Hx Alcohol Use: No Drug/Substance Use Hx: No Substance Use Type: None Hx Substance Use Treatment: No <Noel Allen - Last Filed: 01/31/18 03:55> - Past Medical History Allergies/Adverse Reactions: Allergies Allergy/AdvReac Type Severity Reaction Status Date / Time No Known Allergies Allergy Verified 01/30/18 22:05 Home Medications: Ambulatory Orders Famotidine [Pepcid -] 40 mg PO DAILY 01/29/18 Icosapent Ethyl [Vascepa] 1 gm PO DAILY 01/29/18 Lubiprostone [Amitiza] 8 mcg PO BID 01/29/18 Review of Systems - Review of Systems Comments:: 01/31/18 03:46 GENERAL/CONSTITUTIONAL: No fever or chills. No weakness. HEAD, EYES, EARS, NOSE AND THROAT: No change in vision. No sore throat. CARDIOVASCULAR: No chest pain or shortness of breath RESPIRATORY: No cough, wheezing, or hemoptysis. GASTROINTESTINAL: Positive for nausea, vomiting. Negative for diarrhea or constipation. GENITOURINARY: No dysuria, frequency, or change in urination. MUSCULOSKELETAL: No joint or muscle swelling or pain. No neck or back pain. SKIN: No rash NEUROLOGIC: No headache, vertigo, loss of consciousness, or change in strength/ sensation. ENDOCRINE: No increased thirst. No abnormal weight change ALLERGIC/IMMUNOLOGIC: No hives or skin allergy. <Noel Allen - Last Filed: 01/31/18 03:55> *Physical Exam - Vital Signs Last Vital Signs Temp Pulse Resp BP Pulse Ox 98.0 F 78 16 143/93 100 01/30/18 22:04 01/30/18 22:04 01/30/18 22:04 01/30/18 22:04 01/30/18 22:04 <Elinor Longo - Last Filed: 01/31/18 03:53> - Vital Signs Last Vital Signs Temp Pulse Resp BP Pulse Ox 98.0 F 78 16 143/93 100 01/30/18 22:04 01/30/18 22:04 01/30/18 22:04 01/30/18 22:04 01/30/18 22:04 - Physical Exam Comments: 01/31/18 03:46 GENERAL: Awake, alert, and fully oriented, in no acute distress HEAD: No signs of trauma, normocephalic, atraumatic EYES: PERRLA, EOMI, sclera anicteric, conjunctiva clear ENT: Auricles normal inspection, hearing grossly normal, nares patent, oropharynx clear without exudates. Moist mucosa LUNGS: No distress, speaks full sentences, clear to auscultation bilaterally HEART: Regular rate and rhythm, normal S1 and S2, no murmurs, rubs or gallops, peripheral pulses normal and equal bilaterally. ABDOMEN: Soft, tender in RUQ, no rebound, no guarding. EXTREMITIES: Normal inspection, Normal range of motion, no edema. No clubbing or cyanosis. NEUROLOGICAL: Cranial nerves II through XII grossly intact. Normal speech, no focal sensorimotor deficits SKIN: Warm, Dry, normal turgor, no rashes or lesions noted. <Noel Allen - Last Filed: 01/31/18 03:55> ED Treatment Course - LABORATORY CBC & Chemistry Diagram: 01/30/18 10:10 01/30/18 10:10 - ADDITIONAL ORDERS Additional order review: Laboratory Results 01/31/18 01/30/18 02:39 10:10 Sodium 139 Potassium 3.8 Chloride 105 Carbon Dioxide 27 Anion Gap 7 L BUN 7 Creatinine 0.7 Creat Clearance w eGFR > 60 Random Glucose 130 H Calcium 8.5 Total Bilirubin 0.4 AST 18 ALT 31 Alkaline Phosphatase 81 Creatine Kinase 377 H Creatine Kinase Index 0.9 CK-MB (CK-2) 3.689 H Troponin I < 0.02 Total Protein 7.5 Albumin 4.0 Lipase 79 01/30/18 10:10 RBC 4.60 MCV 89.0 MCHC 34.0 RDW 13.2 MPV 10.0 Neutrophils % 80.2 Lymphocytes % 12.0 D Monocytes % 6.5 Eosinophils % 1.0 D Basophils % 0.3 - Medications Given in the ED: ED Medications Discontinued Medications Generic Name Dose Route Start Last Admin Trade Name Freq PRN Reason Stop Dose Admin Al Hydroxide/Mg Hydroxide 30 ml 01/31/18 01:07 01/31/18 02:42 Mylanta Oral Suspension - PO 01/31/18 01:08 30 ml ONCE ONE Administration Famotidine 20 mg in 12 mls @ 144 mls/hr 01/31/18 01:07 01/31/18 02:42 Pepcid 20 Mg/12 Ml Push IVPB 01/31/18 01:11 144 mls/hr ONCE ONE Administration Sodium Chloride 1,000 mls @ 1,000 mls/hr 01/31/18 01:06 01/31/18 02:43 Normal Saline - IV 01/31/18 02:05 1,000 mls/hr ASDIR STA Administration Morphine Sulfate 4 mg 01/31/18 01:07 01/31/18 02:42 Morphine Injection - IVPUSH 01/31/18 01:08 Not Given ONCE ONE <Elinor Longo - Last Filed: 01/31/18 03:53> - LABORATORY CBC & Chemistry Diagram: 01/30/18 10:10 01/30/18 10:10 - ADDITIONAL ORDERS Additional order review: Laboratory Results 01/31/18 01/30/18 02:39 10:10 Sodium 139 Potassium 3.8 Chloride 105 Carbon Dioxide 27 Anion Gap 7 L BUN 7 Creatinine 0.7 Creat Clearance w eGFR > 60 Random Glucose 130 H Calcium 8.5 Total Bilirubin 0.4 AST 18 ALT 31 Alkaline Phosphatase 81 Creatine Kinase 377 H Creatine Kinase Index 0.9 CK-MB (CK-2) 3.689 H Troponin I < 0.02 Total Protein 7.5 Albumin 4.0 Lipase 79 01/30/18 10:10 RBC 4.60 MCV 89.0 MCHC 34.0 RDW 13.2 MPV 10.0 Neutrophils % 80.2 Lymphocytes % 12.0 D Monocytes % 6.5 Eosinophils % 1.0 D Basophils % 0.3 - RADIOLOGY Radiology Studies Ordered: Category Date Time Status GALLBLADDER US [US] Stat Ultrasound 01/31/18 01:05 Taken - Medications Given in the ED: ED Medications Discontinued Medications Generic Name Dose Route Start Last Admin Trade Name Freq PRN Reason Stop Dose Admin Al Hydroxide/Mg Hydroxide 30 ml 01/31/18 01:07 01/31/18 02:42 Mylanta Oral Suspension - PO 01/31/18 01:08 30 ml ONCE ONE Administration Famotidine 20 mg in 12 mls @ 144 mls/hr 01/31/18 01:07 01/31/18 02:42 Pepcid 20 Mg/12 Ml Push IVPB 01/31/18 01:11 144 mls/hr ONCE ONE Administration Sodium Chloride 1,000 mls @ 1,000 mls/hr 01/31/18 01:06 01/31/18 02:43 Normal Saline - IV 01/31/18 02:05 1,000 mls/hr ASDIR STA Administration Morphine Sulfate 4 mg 01/31/18 01:07 01/31/18 02:42 Morphine Injection - IVPUSH 01/31/18 01:08 Not Given ONCE ONE <Noel Allen - Last Filed: 01/31/18 03:55> Medical Decision Making - Medical Decision Making 01/31/18 03:47 Patient is 42F here today complaining of epigastric abdominal pain. Vital signs stable and normal. PE shows RUQ pain. Patient clearly uncomfortable. Labs drawn in [facility] show: Laboratory Tests 01/30/18 01/30/18 01/31/18 10:10 10:10 02:39 WBC 17.1 H Hgb 14.0 Hct 41.0 Plt Count 210 BUN 7 Creatinine 0.7 Troponin I < 0.02 Lipase 79 CBC shows leukocytosis. CMP reassuring. Lipase negative. Troponin undetectable. EKG shows normal sinus rhythm with rate of 70. No st elevations or depressions. No significant t wave abnormalities. Normal QRS/OH/QTc intervals. Patient treated with morphine, pepcid, zofran, fluids. Gallbladder ultrasound ordered. US shows cholelithiasis with new gallbladder wall thickening concerning for cholecystitis. Will admit patient to hospitalist. <Noel Allen - Last Filed: 01/31/18 03:55> *DC/Admit/Observation/Transfer - Discharge Dispostion Decision to Admit order: Yes <Elinor Longo - Last Filed: 01/31/18 03:53> - Discharge Dispostion Decision to Admit order: Yes <Noel Allen - Last Filed: 01/31/18 03:55> Diagnosis at time of Disposition: Cholecystitis - Discharge Dispostion Condition at time of disposition: Stable - Referrals Referrals: Amol Bauman MD [Primary Care Provider] - - Patient Instructions - Post Discharge Activity
[2018-01-31] MEDS ORDERED: CEFTRIAXONE 1,000 MG in DEXTROSE 5%-WATER - 50 ML IVPB ONE (03:53)
[2018-01-31] MEDS ORDERED: CEFTRIAXONE 1 GM/50 ML BAG ONE (03:56)
--- NOTE | 2018-01-31 04:26 | HP ---
Admitting History and Physical - Primary Care Physician PCP: marcie - Admission History Source: Patient, Family Member, Medical Record Limitations to Obtaining History: No Limitations - Smoking History Smoking history: Never smoked Have you smoked in the past 12 months: No Aproximately how many cigarettes per day: 8 - Alcohol/Substance Use Hx Alcohol Use: No Home Medications - Allergies Allergies/Adverse Reactions: Allergies Allergy/AdvReac Type Severity Reaction Status Date / Time No Known Allergies Allergy Verified 01/30/18 22:05 - Home Medications Home Medications: Ambulatory Orders Famotidine [Pepcid -] 40 mg PO DAILY 01/29/18 Icosapent Ethyl [Vascepa] 1 gm PO DAILY 01/29/18 Lubiprostone [Amitiza] 8 mcg PO BID 01/29/18 Review of Systems - Review of Systems Constitutional: reports: No Symptoms Eyes: reports: No Symptoms HENT: reports: No Symptoms Neck: reports: No Symptoms Cardiovascular: reports: No Symptoms Respiratory: reports: No Symptoms Gastrointestinal: reports: Abdominal Pain, Bloating, Nausea, Vomiting Genitourinary: reports: No Symptoms Musculoskeletal: reports: No Symptoms Integumentary: reports: No Symptoms Physical Examination Vital Signs: Vital Signs Temperature 98.0 F 01/30/18 22:04 Pulse Rate 78 01/30/18 22:04 Respiratory Rate 16 01/30/18 22:04 Blood Pressure 143/93 01/30/18 22:04 O2 Sat by Pulse Oximetry (%) 100 01/30/18 22:04 Constitutional: Yes: Well Nourished, No Distress, Calm Eyes: Yes: WNL, Conjunctiva Clear, EOM Intact HENT: Yes: WNL, Atraumatic, Normocephalic Neck: Yes: WNL, Supple, Trachea Midline Cardiovascular: Yes: WNL, Regular Rate and Rhythm Respiratory: Yes: WNL, Regular, CTA Bilaterally Gastrointestinal: Yes: WNL, Normal Bowel Sounds, Soft, Tenderness, Vomiting Musculoskeletal: Yes: WNL Extremities: Yes: WNL Labs: CBC, BMP 01/30/18 10:10 01/30/18 10:10 Imaging - Results Ultrasound: Report Reviewed, Image Reviewed Problem List - Problems (1) Cholelithiases Assessment/Plan: patient presented for RUQ pain radiating to the scapula worse with food admitted for cholelithiasis vs cholecystiti admit to medicine surgery evaluation start metronidazole start ceftriaxone diet clear liquids Code(s): K80.20 - CALCULUS OF GALLBLADDER W/O CHOLECYSTITIS W/O OBSTRUCTION (2) Cholecystitis Code(s): K81.9 - CHOLECYSTITIS, UNSPECIFIED
--- NOTE | 2018-01-31 11:54 | CONSULT ---
- Consultation REQUESTING PROVIDER: ER CONSULT REQUEST: We have been asked to surgically evaluate this patient for RUQ abdominal pain PCP:Jt Magana MD HISTORY OF PRESENT ILLNESS: Patient w/known GERD and cholelithiasis s/p recent admission presented w/ post prandial n/v/RUQ abdominal pain similar to but worse than the previous admission; NOC. PMHx: GERD PSHx: none Home Medications Medication Instructions Recorded Famotidine [Pepcid -] 40 mg PO DAILY 01/29/18 Icosapent Ethyl [Vascepa] 1 gm PO DAILY 01/29/18 Lubiprostone [Amitiza] 8 mcg PO BID 01/29/18 Allergies Allergy/AdvReac Type Severity Reaction Status Date / Time No Known Allergies Allergy Verified 01/30/18 22:05 PHYSICAL EXAM: GENERAL: Awake, alert, and fully oriented, in no acute distress. HEAD: Normal with no signs of trauma. EYES: PERRL, sclera anicteric, conjunctiva clear. NECK: Normal ROM, supple without lymphadenopathy, JVD, or masses. ABDOMEN: Soft, tender RUQ w/[place] sign, not distended, normoactive bowel sounds, no guarding, no rebound, no masses. No organomegaly. No hernias MUSCULOSKELETAL: Normal ROM at all joints. No bony deformities or tenderness. No CVA tenderness. UPPER EXTREMITIES: 2+ pulses, warm, well-perfused. No cyanosis. Cap refill <2 seconds. No peripheral edema. LOWER EXTREMITIES: 2+ pulses, warm, well-perfused. No calf tenderness. No peripheral edema. NEUROLOGICAL: Normal speech, gait not observed. PSYCH: Cooperative. Good eye contact. Appropriate mood and affect. SKIN: Warm, dry, normal turgor, no rashes or lesions noted. Vital Signs Temperature 97.8 F 01/31/18 11:42 Pulse Rate 68 01/31/18 11:42 Respiratory Rate 20 01/31/18 11:42 Blood Pressure 116/61 01/31/18 11:42 O2 Sat by Pulse Oximetry (%) 98 01/31/18 11:20 Lab Results WBC 17.1 K/mm3 (4.0-10.0) H 01/30/18 10:10 RBC 4.60 M/mm3 (3.60-5.2) 01/30/18 10:10 Hgb 14.0 GM/dL (10.7-15.3) 01/30/18 10:10 Hct 41.0 % (32.4-45.2) 01/30/18 10:10 MCV 89.0 fl (80-96) 01/30/18 10:10 MCHC 34.0 g/dl (32.0-36.0) 01/30/18 10:10 RDW 13.2 % (11.6-15.6) 01/30/18 10:10 Plt Count 210 K/MM3 (134-434) 01/30/18 10:10 Sodium 139 mmol/L (136-145) 01/30/18 10:10 Potassium 3.8 mmol/L (3.5-5.1) 01/30/18 10:10 Chloride 105 mmol/L (98-107) 01/30/18 10:10 Carbon Dioxide 27 mmol/L (21-32) 01/30/18 10:10 Anion Gap 7 (8-16) L 01/30/18 10:10 BUN 7 mg/dL (7-18) 01/30/18 10:10 Creatinine 0.7 mg/dL (0.55-1.02) 01/30/18 10:10 Random Glucose 130 mg/dL (74-106) H 01/30/18 10:10 Calcium 8.5 mg/dL (8.5-10.1) 01/30/18 10:10 IMP: acute cholecystitis PLAN: NPO/IVF/IVAB's; lap jorge luis possible open 02/03/18; a/a/u by the patient. Cralitos Polanco MD FACS
[2018-01-31 12:01] VITALS: BMI 24.7
--- NOTE | 2018-01-31 12:33 | PN ---
Progress Note, Physician Chief Complaint: Cholecystitis History of Present Illness: NAD, no pain at this time seen by Surgery IV abx - Objective Vital Signs: Vital Signs Temperature 97.8 F 01/31/18 11:48 Pulse Rate 68 01/31/18 11:48 Respiratory Rate 20 01/31/18 11:48 Blood Pressure 116/61 01/31/18 11:48 O2 Sat by Pulse Oximetry (%) 98 01/31/18 11:48 Constitutional: Yes: Well Nourished, No Distress, Calm Cardiovascular: Yes: Regular Rate and Rhythm Respiratory: Yes: Regular Gastrointestinal: Yes: Normal Bowel Sounds, Soft Musculoskeletal: Yes: WNL Extremities: Yes: WNL Edema: No Peripheral Pulses WNL: Yes Neurological: Yes: Alert, Oriented Psychiatric: Yes: Alert, Oriented Labs: CBC, BMP 01/30/18 10:10 01/30/18 10:10 Problem List - Problems (1) Cholecystitis Assessment/Plan: -seen by ID -IV abx -Seen by surgery -Choleycystectomy planned for 02/02/18 Code(s): K81.9 - CHOLECYSTITIS, UNSPECIFIED (2) Leukocytosis Assessment/Plan: -2/2 to choleycystectomy Code(s): D72.829 - ELEVATED WHITE BLOOD CELL COUNT, UNSPECIFIED Assessment/Plan see problem list DVT/GI prophylaxis
[2018-01-31] MEDS: SODIUM CHLORIDE 1,000 ML IV SCH (12:50)
--- NOTE | 2018-01-31 16:59 | PN ---
Progress Note (short form) - Note Progress Note: seen by Dr Mejia on 01/29 returns the same evening of discharge with severe abdominal pain RUQnow with ultrasound findings of cholycystitis reports chills at home wbc is 17k +smoker no allergies Vital Signs Period Temp Pulse Resp BP Sys/Mora Pulse Ox Last 24 Hr 97.8 F-98.6 F 64-78 16-20 107-143/54-93 96-100 cor-rrr llungs clear abd soft,nt, mild ruq pain on palpation ext no edema CBC, BMP 01/30/18 10:10 01/30/18 10:10 Current Medications Sodium Chloride (Normal Saline -) 1,000 mls @ 100 mls/hr IV ASDIR ZEYAD Last Admin: 01/31/18 12:50 Dose: 100 mls/hr a/p cholycystitis for OR per surgery rocephin/flagyl blood cultures smoking cessation advised
[2018-02-01] MEDS: SODIUM CHLORIDE 1,000 ML IV SCH ×2 (00:08→16:14)
[2018-02-01] MEDS ORDERED: ACETAMINOPHEN 1000 MG/100 ML VIAL (NON FORMULARY) IVPB PRN ×2 (08:39→16:27)
--- NOTE | 2018-02-01 08:41 | PN ---
Progress Note, Physician Chief Complaint: Cholecystitis History of Present Illness: NAD, no pain at this time seen by Surgery IV abx - Current Medication List Current Medications: Active Medications Acetaminophen (Ofirmev Injection -) 1,000 mg IVPB Q6H PRN PRN Reason: PAIN OR FEVER Sodium Chloride (Normal Saline -) 1,000 mls @ 100 mls/hr IV ASDIR ZEYAD Last Admin: 02/01/18 00:08 Dose: 100 mls/hr Ceftriaxone Sodium 2 gm/ (Dextrose) 100 mls @ 200 mls/hr IVPB DAILY ZEYAD PRN Reason: Protocol Metronidazole (Flagyl 500mg Premixed Ivpb -) 500 mg in 100 mls @ 100 mls/hr IVPB Q8H-IV ZEYAD Last Admin: 02/01/18 01:26 Dose: 100 mls/hr Pantoprazole Sodium 40 mg/ (Sodium Chloride) 100 mls @ 200 mls/hr IVPB DAILY ZEYAD - Objective Vital Signs: Vital Signs Temperature 98.2 F 02/01/18 06:00 Pulse Rate 78 02/01/18 06:00 Respiratory Rate 18 02/01/18 06:00 Blood Pressure 116/61 02/01/18 06:00 O2 Sat by Pulse Oximetry (%) 98 01/31/18 21:00 Constitutional: Yes: Well Nourished, No Distress, Calm Cardiovascular: Yes: Regular Rate and Rhythm Respiratory: Yes: Regular Gastrointestinal: Yes: Normal Bowel Sounds, Soft Musculoskeletal: Yes: WNL Extremities: Yes: WNL Edema: No Peripheral Pulses WNL: Yes Neurological: Yes: Alert, Oriented Psychiatric: Yes: Alert, Oriented Problem List - Problems (1) Cholecystitis Assessment/Plan: -seen by ID -IV abx -Seen by surgery -Choleycystectomy planned for 02/02/18 Code(s): K81.9 - CHOLECYSTITIS, UNSPECIFIED (2) Leukocytosis Assessment/Plan: -2/2 to choleycystectomy Code(s): D72.829 - ELEVATED WHITE BLOOD CELL COUNT, UNSPECIFIED Assessment/Plan see problem list DVT/GI prophylaxis
[2018-02-01 08:43] LABS: BASO % 0.6 % (0-2.0); EOS % 2.6 % (0-4.5); HEMATOCRIT 38.5 % (32.4-45.2); HEMOGLOBIN 13.3 GM/dL (10.7-15.3); LYMPH % 27.9 % (8-40); MCH 31.3 pg (25.7-33.7); MCHC 34.5 g/dl (32.0-36.0); MEAN CELL VOLUME 90.8 fl (80-96); MEAN PLT VOLUME 10.1 fl (7.5-11.1); MONO % 7.8 % (3.8-10.2); NEUT % 61.1 % (42.8-82.8); PLATELET COUNT 152 K/MM3 (134-434); RBC 4.25 M/mm3 (3.60-5.2); RDW 13.2 % (11.6-15.6); WHITE BLOOD COUNT 7.2 K/mm3 (4.0-10.0)
[2018-02-01 09:03] LABS: CHLORIDE 110 mmol/L (98-107); SODIUM 142 mmol/L (136-145)
[2018-02-01 09:09] LABS: ALBUMIN 3.2 g/dl (3.4-5.0); ALK PHOS 65 U/L (45-117); ANION GAP 7 (8-16); BLOOD UREA NITROGEN 4 mg/dL (7-18); CALCIUM 7.6 mg/dL (8.5-10.1); CO2 25 mmol/L (21-32); CREATININE 0.5 mg/dL (0.55-1.02); GLUCOSE,RANDOM 80 mg/dL (74-106); MAGNESIUM 2.1 mg/dL (1.8-2.4); PHOSPHOROUS 2.5 mg/dL (2.5-4.9); SGOT/AST 24 U/L (15-37); SGPT/ALT 36 U/L (12-78); TOT PROT 6.2 g/dl (6.4-8.2)
--- NOTE | 2018-02-01 09:12 | PN ---
Progress Note (short form) - Note Progress Note: Attending Surgeon No c/o today VSS AF abdomen-soft; nt WBC-nl IMP: acute cholecystitis/cholelithiasis SEPIDEH: Continue present tx.; clear liquids today; NPO after MN for lap jorge luis 02/02. Carlitos Polanco MD FACS
--- NOTE | 2018-02-01 09:13 | PN ---
Progress Note (short form) - Note Progress Note: Attending Surgeon No c/o VSS AF abdomen-soft WBC down IMP:acute cholecystitis/cholelithiasis PLAN: Liquids today; NPO after MN; lap jorge luis 02/02/18 Carlitos Polanco MD FACS
[2018-02-01] MEDS ORDERED: DEXTROSE 5%-WATER 100 ML IVPB ONE (09:24)
[2018-02-01 09:37] LABS: INR 1.09 (0.82-1.09); PROTHROMBIN TIME (PATIENT) 12.3 SEC (9.7-13.0)
[2018-02-01 09:40] LABS: ACTIVATED PTT 30.9 SECONDS (26.9-34.4)
[2018-02-01] MEDS ORDERED: PANTOPRAZOLE SODIUM 40 MG in SODIUM CHLORIDE 100 ML IVPB SCH (10:00)
[2018-02-01] MEDS: CEFTRIAXONE 2 GM in DEXTROSE 5%-WATER 100 ML IVPB SCH (10:03)
[2018-02-01] MEDS: PANTOPRAZOLE SODIUM 40 MG VIAL IVPUSH SCH (10:04)
[2018-02-01] MEDS ORDERED: ONDANSETRON 4 MG/2 ML VIAL IVPB PRN (16:26)
[2018-02-01] MEDS ORDERED: morphine SULFATE 4 MG/ML VIAL IVPUSH PRN (16:27)
--- NOTE | 2018-02-01 21:45 | EKG ---
Test Reason : Blood Pressure : / mmHG Vent. Rate : 070 BPM Atrial Rate : 070 BPM P-R Int : 164 ms QRS Dur : 084 ms QT Int : 428 ms P-R-T Axes : 048 060 058 degrees QTc Int : 462 ms NORMAL SINUS RHYTHM NORMAL ECG WHEN COMPARED WITH ECG OF 28-JAN-2018 22:18, NO SIGNIFICANT CHANGE WAS FOUND Confirmed by SOFIA MYERS MD ([id number]) on 02/01/2018 9:45:02 PM Referred By: Confirmed By:SOFIA MYERS MD
[2018-02-02 07:46] LABS: BASO % 0.7 % (0-2.0); EOS % 2.5 % (0-4.5); HEMATOCRIT 39.5 % (32.4-45.2); HEMOGLOBIN 13.6 GM/dL (10.7-15.3); LYMPH % 23.4 % (8-40); MCH 31.1 pg (25.7-33.7); MCHC 34.3 g/dl (32.0-36.0); MEAN CELL VOLUME 90.6 fl (80-96); NEUT % 65.4 % (42.8-82.8); PLATELET COUNT 176 K/MM3 (134-434); RBC 4.36 M/mm3 (3.60-5.2); RDW 13.5 % (11.6-15.6); WHITE BLOOD COUNT 8.6 K/mm3 (4.0-10.0)
[2018-02-02 08:31] LABS: CHLORIDE 111 mmol/L (98-107); SODIUM 142 mmol/L (136-145)
--- NOTE | 2018-02-02 09:06 | PN ---
Progress Note, Physician - Current Medication List Current Medications: Active Medications Acetaminophen (Ofirmev Injection -) 1,000 mg IVPB Q6H PRN PRN Reason: FEVER Sodium Chloride (Normal Saline -) 1,000 mls @ 100 mls/hr IV ASDIR ZEYAD Last Admin: 02/01/18 16:14 Dose: 100 mls/hr Ceftriaxone Sodium 2 gm/ (Dextrose) 100 mls @ 200 mls/hr IVPB DAILY ZEYAD PRN Reason: Protocol Last Admin: 02/01/18 10:03 Dose: 200 mls/hr Metronidazole (Flagyl 500mg Premixed Ivpb -) 500 mg in 100 mls @ 100 mls/hr IVPB Q8H-IV ZEYAD Last Admin: 02/02/18 01:16 Dose: 100 mls/hr Morphine Sulfate (Morphine Sulfate) 1 mg IVPUSH Q6H PRN PRN Reason: PAIN LEVEL 6-10 Ondansetron HCl (Zofran Injection) 8 mg IVPB Q8H PRN PRN Reason: NAUSEA Last Admin: 02/01/18 16:52 Dose: 8 mg Pantoprazole Sodium (Protonix Iv) 40 mg IVPUSH DAILY [facility] Last Admin: 02/01/18 10:04 Dose: 40 mg - Objective Vital Signs: Vital Signs Temperature 97.7 F 02/02/18 06:01 Pulse Rate 71 02/02/18 06:01 Respiratory Rate 20 02/02/18 06:01 Blood Pressure 99/60 02/02/18 06:01 O2 Sat by Pulse Oximetry (%) 97 02/01/18 19:49 Cardiovascular: Yes: Regular Rate and Rhythm Respiratory: Yes: Regular, CTA Bilaterally Gastrointestinal: Yes: Normal Bowel Sounds, Soft. No: Tenderness Labs: CBC, BMP 02/02/18 07:00 02/02/18 07:00 INR, PTT INR 1.09 (0.82-1.09) 02/01/18 07:04 Problem List - Problems (1) Cholecystitis Assessment/Plan: -seen by ID -IV abx -Seen by surgery -Choleycystectomy planned for 02/02/18 Code(s): K81.9 - CHOLECYSTITIS, UNSPECIFIED (2) Cholelithiases Code(s): K80.20 - CALCULUS OF GALLBLADDER W/O CHOLECYSTITIS W/O OBSTRUCTION (3) Leukocytosis Assessment/Plan: -2/ to choleycystectomy Code(s): D72.829 - ELEVATED WHITE BLOOD CELL COUNT, UNSPECIFIED
[2018-02-02 09:07] LABS: ALBUMIN 3.5 g/dl (3.4-5.0); ALK PHOS 69 U/L (45-117); ANION GAP 8 (8-16); BILIRUBIN,TOTAL 0.6 mg/dL (0.2-1.0); BLOOD UREA NITROGEN 3 mg/dL (7-18); CALCIUM 8.1 mg/dL (8.5-10.1); CO2 23 mmol/L (21-32); CREATININE 0.6 mg/dL (0.55-1.02); GLUCOSE,RANDOM 107 mg/dL (74-106); SGOT/AST 19 U/L (15-37); SGPT/ALT 35 U/L (12-78); TOT PROT 6.6 g/dl (6.4-8.2)
--- NOTE | 2018-02-02 11:45 | PN ---
Progress Note, Physician Chief Complaint: ID Ceftriaxone and metronidazole Afebrile No pain - Current Medication List Current Medications: Active Medications Acetaminophen (Ofirmev Injection -) 1,000 mg IVPB Q6H PRN PRN Reason: FEVER Sodium Chloride (Normal Saline -) 1,000 mls @ 100 mls/hr IV ASDIR ZEYAD Last Admin: 02/01/18 16:14 Dose: 100 mls/hr Ceftriaxone Sodium 2 gm/ (Dextrose) 100 mls @ 200 mls/hr IVPB DAILY ZEYAD PRN Reason: Protocol Last Admin: 02/01/18 10:03 Dose: 200 mls/hr Metronidazole (Flagyl 500mg Premixed Ivpb -) 500 mg in 100 mls @ 100 mls/hr IVPB Q8H-IV ZEYAD Last Admin: 02/02/18 01:16 Dose: 100 mls/hr Morphine Sulfate (Morphine Sulfate) 1 mg IVPUSH Q6H PRN PRN Reason: PAIN LEVEL 6-10 Ondansetron HCl (Zofran Injection) 8 mg IVPB Q8H PRN PRN Reason: NAUSEA Last Admin: 02/01/18 16:52 Dose: 8 mg Pantoprazole Sodium (Protonix Iv) 40 mg IVPUSH DAILY [facility] Last Admin: 02/01/18 10:04 Dose: 40 mg - Objective Vital Signs: Vital Signs Temperature 97.7 F 02/02/18 06:01 Pulse Rate 71 02/02/18 06:01 Respiratory Rate 20 02/02/18 06:01 Blood Pressure 99/60 02/02/18 06:01 O2 Sat by Pulse Oximetry (%) 97 02/01/18 19:49 Constitutional: Yes: Well Nourished, No Distress HENT: Yes: WNL, Atraumatic Neck: Yes: WNL, Supple Respiratory: Yes: WNL, Regular, CTA Bilaterally Gastrointestinal: Yes: WNL, Normal Bowel Sounds, Soft. No: Tenderness, Tenderness, Epigastrium Edema: No Labs: CBC, BMP 02/02/18 07:00 02/02/18 07:00 INR, PTT INR 1.09 (0.82-1.09) 02/01/18 07:04 Assessment/Plan Microbiology 01/31/18 18:25 Blood - Peripheral Venous Blood Culture - Preliminary NO GROWTH OBTAINED AFTER 24 HOURS, INCUBATION TO CONTINUE FOR 4 DAYS. 01/31/18 17:50 Blood - Peripheral Venous Blood Culture - Preliminary NO GROWTH OBTAINED AFTER 24 HOURS, INCUBATION TO CONTINUE FOR 4 DAYS. Laboratory Tests 02/02/18 02/02/18 07:00 07:00 WBC 8.6 RBC 4.36 Hgb 13.6 Plt Count 176 BUN 3 L Creatinine 0.6 Creat Clearance w eGFR > 60 Total Bilirubin 0.6 D AST 19 Assessment Gallstones Cholecysititis Plan Antibiotics can stop once surgery complete as per Dr Polanco
[2018-02-02] MEDS ORDERED: DEXTROSE 5%-WATER 100 ML IVPB ONE (12:06)
[2018-02-02] MEDS ORDERED: BUPIVACAINE HCL/PF 0.5% (5MG/ML) 10 ML VIAL ONE (12:55)
[2018-02-02] MEDS ORDERED: MIDAZOLAM HCL 2 MG/2 ML SINGLE DOSE VIAL ONE (13:04)
[2018-02-02] MEDS ORDERED: DEXAMETHASONE SOD PHOSPHATE 4 MG/1 ML VIAL ONE (13:10)
[2018-02-02] MEDS ORDERED: PROPOFOL 20 ML ONE (13:14)
[2018-02-02] MEDS ORDERED: ROCURONIUM BROMIDE 50 MG/5 ML VIAL ONE (13:15)
[2018-02-02] MEDS ORDERED: BUPIVACAINE HCL/PF 0.5% (5MG/ML) 10 ML VIAL IJ ONE (14:17)
[2018-02-02] MEDS ORDERED: GLYCOPYRROLATE 0.2 MG/1 ML VIAL ONE (14:21)
[2018-02-02] MEDS ORDERED: NEOSTIGMINE METHYLSULFATE 0.5 MG/ML - 10 ML MDV ONE (14:21)
--- NOTE | 2018-02-02 14:47 | OP ---
Operative Note - Note: Operative Date: 02/02/18 Pre-Operative Diagnosis: acute cholecystitis/cholelithiasis Operation: lap jorge luis Findings: acute cholecystitis/cholelithiasis Post-Operative Diagnosis: Same as Pre-op Surgeon: Carlitos Polanco Recordings Librarian: Luke Hubbard Anesthesiologist/EDGE SETTER: José Antonio Colmenares Anesthesia: General Specimens Removed: gallbladder and contents Estimated Blood Loss (mls): 20
--- NOTE | 2018-02-02 15:03 | SURG ---
Surgery Shank Turner Note Shank Turner: Luke Hubbard PA-C Date of Service: 02/02/18 Diagnosis: Acute cholecystitis Procedure: Lap cholecystectomy I was present for the entirety of the operative procedure. For further detail, please refer to operative report.
[2018-02-02] MEDS ORDERED: morphine SULFATE 4 MG/ML VIAL IVPUSH PRN (15:09)
[2018-02-02] MEDS ORDERED: ACETAMINOPHEN 1000 MG/100 ML VIAL (NON FORMULARY) IVPB PRN (15:09)
[2018-02-02] MEDS: PANTOPRAZOLE SODIUM 40 MG VIAL IVPUSH SCH (16:24)
[2018-02-02] MEDS: CEFTRIAXONE 2 GM in DEXTROSE 5%-WATER 100 ML IVPB SCH (16:25)
[2018-02-02] MEDS: ONDANSETRON 4 MG/2 ML VIAL IVPB PRN (21:29)
[2018-02-03] MEDS: ONDANSETRON 4 MG/2 ML VIAL IVPB PRN ×2 (05:06→12:01)
--- NOTE | 2018-02-03 08:41 | PN ---
Progress Note (short form) - Note Progress Note: 42yo F h/o cholecystitis s/p Lap jorge luis POD 1. Pt sitting up beside complaining of mild RUQ tenderness. Pt tolerating PO. Denies fever, chills. Last Vital Signs Temp Pulse Resp BP Pulse Ox 98.5 F 76 19 122/55 97 02/03/18 06:01 02/03/18 06:01 02/03/18 06:01 02/03/18 06:01 02/02/18 21:00 CBC, BMP 02/02/18 07:00 02/02/18 07:00 PE: General: comfortable, A&O x 3 Resp: breathing comfortably Abd: soft, nondistended, incisions clean, no discharge Legs: no swelling Problem List - Problems (1) Cholecystitis Assessment/Plan: 42yo F s/p Lap cholecystectomy for cholecystitis -advance diet as tolerated -OOB -will follow up with Dr. Polanco in outpatient office in 6-7 days. Code(s): K81.9 - CHOLECYSTITIS, UNSPECIFIED
[2018-02-03] MEDS ORDERED: DEXTROSE 5%-WATER 100 ML IVPB ONE (08:55)
--- NOTE | 2018-02-03 09:06 | OP ---
DATE OF OPERATION: 02/02/2018 PREOPERATIVE DIAGNOSES: Acute cholecystitis, cholelithiasis. PROCEDURE: Laparoscopic cholecystectomy. SURGEON: Carlitos Polanco MD PROCUREMENT FORESTER: Luke Hubbard PA-C ANESTHESIA: General. OPERATIVE FINDINGS: There was acute cholecystitis and cholelithiasis. The rest of the findings were unremarkable. DESCRIPTION OF PROCEDURE: The patient was placed on the operating room table in supine position. After the induction of general anesthesia, the patient's abdomen was prepped with ChloraPrep and draped in sterile fashion. Time-out was taken and then pneumoperitoneum established above the umbilicus using a Veress needle. Once 15 mm of intra-abdominal pressure was obtained, a 5-mm port was placed at the umbilicus. Additional lateral 5-mm ports and a subxiphoid 12-mm port were placed and laparoscopy carried out, and the previously noted findings were observed. The gallbladder was placed on cephalad and lateral traction, and dissection was begun at the neck of the gallbladder where the peritoneum was opened medially and laterally using blunt and sharp dissection and electrocautery. Dissection continued in the triangle of Calot where the cystic duct was identified coursing from the neck of the gallbladder distally to the common bile duct. It was dissected proximally and distally for length. Similarly, the artery was similarly identified and dissected. A critical view of safety was taken, and then the cystic duct divided proximally and distally using Endo Leanna after it was clipped twice proximally and distally with large hemoclips. The artery was similarly clipped and divided. Hemostasis was checked for and noted to be good and then the gallbladder was removed from the liver bed in a retrograde fashion using electrocautery. Prior to removal from the edge of the liver, hemostasis was again verified and then the gallbladder removed from the edge of the liver, placed in an EndoCatch, and brought out through the subxiphoid port. Pneumoperitoneum was reestablished, hemostasis verified again, and then the 5-mm lateral and subxiphoid ports were removed under laparoscopic vision without evidence of bleeding from the port sites. The umbilical port was removed and the pneumoperitoneum evacuated. All port sites were infiltrated with 0.5% Marcaine and the skin edges closed with 4-0 Biosyn in a subcuticular and continuous fashion. Steri-Strips and Band-Aid dressings were placed and the procedure terminated at this point and the patient aroused from general anesthesia and transferred to the post anesthesia care unit in stable condition awake and alert. ESTIMATED BLOOD LOSS: 20 mL REPLACEMENTS: Crystalloid. DRAINS: None. SPECIMEN: Gallbladder and contents to Pathology. I, Carlitos Polanco, was physically present in the operating room from the time the patient was placed on the operating room table until she was transferred to the post anesthesia care unit in my accompaniment. MD LUCAS Lemus/[id number] MTDD
[2018-02-03] MEDS ORDERED: CEFTRIAXONE 2 GM in DEXTROSE 5%-WATER 100 ML IVPB SCH (10:00)
[2018-02-03] MEDS ORDERED: PANTOPRAZOLE SODIUM 40 MG VIAL IVPUSH SCH (10:00)
--- NOTE | 2018-02-03 10:02 | PN ---
Progress Note (short form) - Note Progress Note: Post op day#1.S/P Laproscopic cholecystectomy under GA uneventful.Patient stable.No any anesthesia related problem.Patient DC from the anesthesia care.
--- NOTE | 2018-02-03 10:47 | DS ---
Physical Examination Vital Signs: Vital Signs Temperature 98 F 02/03/18 09:12 Pulse Rate 77 02/03/18 09:12 Respiratory Rate 18 02/03/18 09:12 Blood Pressure 137/64 02/03/18 09:12 O2 Sat by Pulse Oximetry (%) 97 02/02/18 21:00 Constitutional: Yes: Well Nourished, No Distress, Calm Cardiovascular: Yes: Regular Rate and Rhythm Respiratory: Yes: Regular Gastrointestinal: Yes: Normal Bowel Sounds, Soft Edema: No Peripheral Pulses WNL: Yes Wound/Incision: Yes: Sutures Intact Neurological: Yes: Alert, Oriented Psychiatric: Yes: Alert, Oriented Labs: CBC, BMP 02/02/18 07:00 02/02/18 07:00 Discharge Summary Reason For Visit: CHOLECYSTITIS Current Active Problems Cholecystitis (Acute) Cholelithiases (Acute) Hospital Course: Patient is a 42F with no significant medical history here today complaining of epigastric abdominal pain. Patient was evaluated for cholecystitis vs GERD and discharged on 01/30 with a diagnosis of cholelithiasis and GERD. Patient is presenting to the ED again today due to sudden onset of epigastric abdominal pain. Patient describes the pain as a pressure. Denies pain with urination. Last bowel movement this morning. Denies fevers, chills. Endorses vomiting and nausea. Condition: Stable - Instructions Diet, Activity, Other Instructions: Dr. Polanco Discharge Instructions Dear KOLE MCDANIELS, Post Operative Instructions Physical activity Resume your normal everyday activity as tolerated no heavy lifting or exercise until seen by your surgeon. You may walk unlimited amounts of and climb stairs. You may resume driving the car when you feel safe and comfortable behind the wheel. Wound care If you have a bandage, leave it on, and keep dry for 48 - 72 hours. After that time discard the outer bandage. If there are tapes on the skin under the outer bandage, leave them in place. They will peel off in the next 7 to 10 days. Do Not peel them off. You may shower 2 days after surgery. If there are tapes present on the skin, they can get wet. Diet There are no dietary restrictions. Eat healthy, high-fiber foods. Drink 6 to 8 glasses of liquid each day. This will assist in keeping your bowels are regular. Pain management You may take Tylenol or acetaminophen or Ibuprofen (for example, Motrin, Advil etc.) Any pain prescription medication ordered should be taken as prescribed for moderate to severe pain. Call Dr. Polanco for any of the following: Severe pain not relieved by medication Fever of 101 or higher Excessive bleeding or drainage on dressing Inability to urinate Call the office at [phone] for a post operative appointment in 7 - 10 days. Referrals: Carlitos Polanco MD [Staff Physician] - Amol Bauman MD [Primary Care Provider] - Disposition: HOME - Home Medications Comprehensive Discharge Medication List: Ambulatory Orders Famotidine [Pepcid -] 40 mg PO DAILY 01/29/18 Icosapent Ethyl [Vascepa] 1 gm PO DAILY 01/29/18 Lubiprostone [Amitiza] 8 mcg PO BID 01/29/18 Acetaminophen 500 mg PO Q6H PRN #120 tablet 02/03/18
[2018-02-03] MEDS ORDERED: oxyCODONE HCL 5 MG TABLET PO PRN (13:17)
[2018-02-03] MEDS ORDERED: ACETAMINOPHEN 325 MG TABLET (FP) PO PRN (13:18)
[2018-02-03 13:59] VITALS: BP 122/65; PULSE 75; TEMP 98.3
--- NOTE | 2018-02-04 15:28 | PATH ---
Surgical Pathology Report Patient Name: KOLE MCDANIELS Med. Rec. #: [id number] /Age/Gender: 1975 (Age: 42) / F Account: [id number] Location: [facility] MED/SURG Taken: 02/02/2018 Received: 02/03/2018 Reported: 02/04/2018 Physicians: Carlitos Polanco MD Specimen(s) Received GALLBLADDER Clinical History Cholelithiasis, cholecystitis Final Diagnosis GALLBLADDER, EXCISION: ACUTE SUPERIMPOSED ON CHRONIC CHOLECYSTITIS. CHOLELITHIASIS. Electronically Signed Beverly Donaldson M.D. Gross Description Received in formalin, labeled "gallbladder," is a 6.2 x 2.3 x 1.8 cm. gallbladder with a 0.2 cm. in length portion of cystic duct attached. The outer surface is alvarado-pink and varies from smooth to shaggy. The lumen contains yellow-green, mucinous bile as well as abundant green, irregular choleliths ranging from 0.2-0.6 mm in greatest dimension. The mucosa is eroded. The wall of the gallbladder averages 0.1cm. in thickness. Driver License Agent sections are submitted in one cassette. /02/03/2018 saudi02/03/2018
== END 2018-02-03 15:20 | disposition home or self-care (01) | DRG 419 ==
LOC: JER 21:54 → JERBED 01-31 03:54 → OBSVTOIN 01-31 04:26 → J7W 01-31 11:32
PROVIDERS: ADMIT Internal Medicine; ATTEND Family Medicine
PROC: 0FT44ZZ Resection of Gallbladder, Percutaneous Endoscopic Approach (ICD-10-PCS; principal; 2018-02-02 13:09)
DX: K80.00 Calculus of gallbladder with acute cholecystitis without obstruction (principal); K21.9 Gastro-esophageal reflux disease without esophagitis; D72.829 Elevated white blood cell count, unspecified
CPT/HCPCS: 36415; 76705-TC; 80053; 82550; 82553; 83690; 83735; 84100; 84484; 84703; 85025; 85610; 85730; 87040; 88304-TC; 93005; 93010; 94760; 99285-25; G0378; J0131; J7030

== ENCOUNTER 2018-02-13 00:21 | Emergency (ER) | payer BC ==
[2018-02-13 01:20] VITALS: BMI 25.6
--- NOTE | 2018-02-13 02:11 | PDOC ---
History of Present Illness - General History Source: Patient Exam Limitations: No Limitations - History of Present Illness Initial Comments: 02/13/18 02:16 The patient is a 42 year old female s/p laparoscopic cholecystectomy on by Dr. Polanco (without complication, patient was medically cleared post-op) who presents with acute onset of 10/10 epigastric pain since this morning. The patient states the pain comes and goes and is associated with nausea and loss of appetite, but denies any vomiting. She denies any diarrhea. Denies any fevers , chills, cough, SOB, CP, or urinary complaints. PCP: Dr. Bauman Allergies: NKDA <Radhika Cooper - Last Filed: 02/13/18 04:49> - General History Source: Patient <Shankar Weeks - Last Filed: 02/13/18 05:03> - General Chief Complaint: Pain Stated Complaint: ABDOMINAL PAIN Time Seen by Provider: 02/13/18 02:08 Past History <Radhika Cooper - Last Filed: 02/13/18 04:49> - Past Medical History COPD: No GI Disorders: Yes Hypercholesterolemia: Yes - Surgical History Cholecystectomy: Yes - Immunization History Immunization Up to Date: Yes - Suicide/Smoking/Psychosocial Hx Smoking History: Never smoked Have you smoked in the past 12 months: Yes Number of Cigarettes Smoked Daily: 10 Cigars Per Day: 0 Information on smoking cessation initiated: No 'Breaking Loose' booklet given: 01/31/18 Hx Alcohol Use: No Drug/Substance Use Hx: No Substance Use Type: None Hx Substance Use Treatment: No <Shankar Weeks - Last Filed: 02/13/18 05:03> - Past Medical History Allergies/Adverse Reactions: Allergies Allergy/AdvReac Type Severity Reaction Status Date / Time No Known Allergies Allergy Verified 01/30/18 22:05 Home Medications: Ambulatory Orders Famotidine [Pepcid -] 40 mg PO DAILY 01/29/18 Icosapent Ethyl [Vascepa] 1 gm PO DAILY 01/29/18 Lubiprostone [Amitiza] 8 mcg PO BID 01/29/18 Acetaminophen 500 mg PO Q6H PRN #120 tablet 02/03/18 Ondansetron HCl [Zofran] 8 mg PO TID PRN #15 tablet 02/03/18 oxyCODONE HCL [Roxicodone -] 5 mg PO Q6H PRN #20 tablet MDD 4 02/03/18 Review of Systems - Review of Systems Able to Perform ROS?: Yes Comments:: 02/13/18 02:22 GENERAL/CONSTITUTIONAL: +Loss of appetite No fever or chills. No weakness. HEAD, EYES, EARS, NOSE AND THROAT: No change in vision. No ear pain or discharge. No sore throat. CARDIOVASCULAR: No chest pain or shortness of breath. RESPIRATORY: No cough, wheezing, or hemoptysis. GASTROINTESTINAL:+abdominal pain, nausea. No vomiting, diarrhea or constipation. GENITOURINARY: No dysuria, frequency, or change in urination. MUSCULOSKELETAL: No joint or muscle swelling or pain. No neck or back pain. SKIN: No rash NEUROLOGIC: No headache, vertigo, loss of consciousness, or change in strength/ sensation. ENDOCRINE: No increased thirst. No abnormal weight change. HEMATOLOGIC/LYMPHATIC: No anemia, easy bleeding, or history of blood clots. ALLERGIC/IMMUNOLOGIC: No hives or skin allergy. <Radhika Cooper - Last Filed: 02/13/18 04:49> *Physical Exam - Vital Signs Last Vital Signs Temp Pulse Resp BP Pulse Ox 98.2 F 93 H 20 132/84 97 02/13/18 01:11 02/13/18 01:11 02/13/18 01:11 02/13/18 01:11 02/13/18 01:11 - Physical Exam Comments: 02/13/18 02:20 GENERAL: Awake, alert, and fully oriented, moderate distress HEAD: No signs of trauma EYES: PERRLA, EOMI, sclera anicteric, conjunctiva clear ENT: Auricles normal inspection, hearing grossly normal, nares patent, oropharynx clear without exudates. Moist mucosa NECK: Normal ROM, supple, no lymphadenopathy, JVD, or masses LUNGS: Breath sounds equal, clear to auscultation bilaterally. No wheezes, and no crackles HEART: Regular rate and rhythm, normal S1 and S2, no murmurs, rubs or gallops ABDOMEN:Epigastric and RUQ tenderness on palpation with voluntary guarding. Normoactive bowel sounds. No rebound. No masses EXTREMITIES: Normal range of motion, no edema. No clubbing or cyanosis. No cords, erythema, or tenderness NEUROLOGICAL: Cranial nerves II through XII grossly intact. Normal speech, normal gait SKIN: Warm, Dry, normal turgor, no rashes or lesions noted. <Radhika Cooper - Last Filed: 02/13/18 04:49> - Vital Signs Last Vital Signs Temp Pulse Resp BP Pulse Ox 98.2 F 93 H 20 132/84 97 02/13/18 01:11 02/13/18 01:11 02/13/18 01:11 02/13/18 01:11 02/13/18 01:11 <Shankar Weeks - Last Filed: 02/13/18 05:03> ED Treatment Course - LABORATORY CBC & Chemistry Diagram: 02/13/18 02:28 02/13/18 02:28 - RADIOLOGY Radiograph Interpretation: 02/13/18 04:50 EXAM: ABDOMEN \T\ PELVIS CT WITH CONTR HISTORY: Rule out abscess status post cholecystectomy FINDINGS: Lung bases are clear. The visualized cardiac chambers are normal size and configuration. Liver is fatty. No biliary duct dilation. No significant edema or abnormal fluid collections in the gallbladder fossa. Normal pancreas, spleen, adrenal glands and kidneys. The stomach and abdominal small and large bowel are normal. There is no aortic aneurysm. There is no significant retroperitoneal lymphadenopathy. The pelvic small and large bowel are normal. The appendix is normal. A bicornuate uterus is noted there is a 3.0 cm right ovarian cyst Urinary bladder is unremarkable. There is no pelvic free fluid IMPRESSION: Fatty liver. No evidence of postoperative complication. Bicornuate uterus. THIS DOCUMENT HAS BEEN ELECTRONICALLY SIGNED Ascencion Massey MD <KennethRadhika - Last Filed: 02/13/18 04:49> - LABORATORY CBC & Chemistry Diagram: 02/13/18 02:28 02/13/18 02:28 <Shankar Weeks - Last Filed: 02/13/18 05:03> Medical Decision Making - Medical Decision Making 02/13/18 05:01 Dr. Weeks: The scribe's documentation has been prepared under my direction and personally reviewed by me in its entirery. I confirm that the note above accurately reflects all work, treatment, procedures, and medical decision making performed by me. Cta scan of abd/pelvis showed no pathology at this time. Pt advised to follow up with her doctor(s) if symptoms continued. Return i f any problems. <Shankar Weeks - Last Filed: 02/13/18 05:03> *DC/Admit/Observation/Transfer - Attestations Scribe Attestion: 02/13/18 02:22 Documentation prepared by Radhika Cooper, acting as medical information specialist for Shankar Weeks DO. <Radhika Cooper - Last Filed: 02/13/18 04:49> - Discharge Dispostion Decision to Admit order: No <Shankar Weeks - Last Filed: 02/13/18 05:03> Diagnosis at time of Disposition: GERD (gastroesophageal reflux disease) Abdominal pain Qualifiers: Abdominal location: right upper quadrant Qualified Code(s): R10.11 - Right upper quadrant pain - Discharge Dispostion Disposition: HOME Condition at time of disposition: Stable - Referrals Referrals: Amol Bauman MD [Primary Care Provider] - Carlitos Polanco MD [Staff Physician] - - Patient Instructions Printed Discharge Instructions: DI for Abdominal Pain-Adult Additional Instructions: Please follow up with your doctors in the next few days if symptoms continue. TAke your usual medications. Return if any problems. - Post Discharge Activity
[2018-02-13] MEDS ORDERED: ONDANSETRON 4 MG/2 ML VIAL IVPUSH STA (02:13)
[2018-02-13] MEDS ORDERED: morphine CARPU-JECT 2 MG/1 ML DISP.SYRIN IVPUSH ONE (02:13)
[2018-02-13] MEDS ORDERED: SODIUM CHLORIDE 1,000 ML IV STA (02:13)
[2018-02-13] MEDS ORDERED: morphine CARPU-JECT 2 MG/1 ML DISP.SYRIN ONE (02:29)
[2018-02-13] MEDS ORDERED: ONDANSETRON 4 MG/2 ML VIAL ONE (02:30)
[2018-02-13] MEDS ORDERED: morphine SULFATE 4 MG/ML VIAL ONE (02:30)
[2018-02-13 02:37] LABS: BASO % 1.1 % (0-2.0); EOS % 1.3 % (0-4.5); HEMATOCRIT 45.4 % (32.4-45.2); LYMPH % 12.2 % (8-40); MCH 29.9 pg (25.7-33.7); MCHC 33.1 g/dl (32.0-36.0); MEAN CELL VOLUME 90.3 fl (80-96); MEAN PLT VOLUME 10.3 fl (7.5-11.1); MONO % 7.9 % (3.8-10.2); NEUT % 77.5 % (42.8-82.8); PLATELET COUNT 216 K/MM3 (134-434); RBC 5.02 M/mm3 (3.60-5.2); RDW 13.7 % (11.6-15.6); WHITE BLOOD COUNT 9.8 K/mm3 (4.0-10.0)
[2018-02-13 02:50] LABS: INR 1.16 (0.82-1.09); PROTHROMBIN TIME (PATIENT) 13.1 SEC (9.7-13.0)
[2018-02-13 03:02] LABS: ANION GAP 9 (8-16); BLOOD UREA NITROGEN 6 mg/dL (7-18); CALCIUM 8.8 mg/dL (8.5-10.1); CHLORIDE 99 mmol/L (98-107); CO2 28 mmol/L (21-32); CREATININE 0.9 mg/dL (0.55-1.02); GLUCOSE,RANDOM 154 mg/dL (74-106); SODIUM 136 mmol/L (136-145); TOT PROT 7.9 g/dl (6.4-8.2)
[2018-02-13 03:05] LABS: ALK PHOS 268 U/L (45-117); N-TERMINAL BNP 45.57 pg/ml (5-125)
[2018-02-13 03:08] LABS: MAGNESIUM 2.1 mg/dL (1.8-2.4); POTASSIUM 4.3 mmol/L (3.5-5.1); SGOT/AST 218 U/L (15-37); SGPT/ALT 681 U/L (12-78)
[2018-02-13 03:43] LABS: URINE APPEARANCE CLEAR; URINE GLUCOSE (UA) 1+ (NEGATIVE); URINE KETONE 1+ (NEGATIVE); URINE LEUK ESTERASE NEGATIVE (NEGATIVE); URINE NITRITE NEGATIVE (NEGATIVE); URINE UROBILINOGEN 4.0 E.U/dl mg/dL (0.2-1.0)
[2018-02-13 03:46] LABS: URINE PROTEIN 2+ (NEGATIVE)
[2018-02-13 03:47] LABS: URINE COLOR DKYELLOW
[2018-02-13 03:49] LABS: EPI CELLS MODERATE /HPF (FEW); URINE BACTERIA RARE /hpf (NONE SEEN); URINE HYALINE CAST 2 /lpf; URINE MUCUS MODERATE
[2018-02-13 05:25] VITALS: BP 126/78; PULSE 88; TEMP 98.5
== END 2018-02-13 05:07 | disposition home or self-care (01) ==
LOC: JER 00:21
PROC: 3E033NZ Introduction of Analgesics, Hypnotics, Sedatives into Peripheral Vein, Percutaneous Approach (ICD-10-PCS; principal; 2018-02-13)
PROC: 3E033GC Introduction of Other Therapeutic Substance into Peripheral Vein, Percutaneous Approach (ICD-10-PCS; 2018-02-13)
PROC: 3E0337Z Introduction of Electrolytic and Water Balance Substance into Peripheral Vein, Percutaneous Approach (ICD-10-PCS; 2018-02-13)
DX: R10.11 Right upper quadrant pain (principal); K21.9 Gastro-esophageal reflux disease without esophagitis
CPT/HCPCS: 36415; 74177-TC; 80053; 81003; 81015; 82550; 83735; 83880; 84484; 84703; 85025; 85610; 86850; 86900; 86901; 99283-25; J7030

== ENCOUNTER 2020-12-13 09:55 | Emergency (ER) | payer BC | END 2020-12-13 12:04 | disposition home or self-care (01) | LOC: JVIRT 09:55 | DX: Z11.52 Encounter for screening for COVID-19 (principal) | CPT/HCPCS: C9803; G2251-GT; Q3014-GT; U0003 ==